=== PATIENT | female | born 1990 | race American Indian/Alaskan Native ===

== ENCOUNTER 2018-07-20 14:57 | Emergency (ER) | payer SELFPAY ==
[2018-07-20 17:29] LABS: Basophils % (Auto) 0.6 % (0.0-1.8); Eosinophils # (Auto) 0.1 K/mm3 (0.0-0.4); Eosinophils % (Auto) 1.9 % (0.0-4.3); Hematocrit 37.1 % (30.3-42.9); Hemoglobin 11.9 gm/dl (10.1-14.3); Lymphocytes # (Auto) 1.2 K/mm3 (1.2-5.4); Mean Corpuscular HGB Conc 32 % (30-34); Mean Corpuscular Hemoglobin 29 pg (28-32); Mean Corpuscular Volume 89 fl (79-97); Monocytes # (Auto) 0.5 K/mm3 (0.0-0.8); Monocytes % (Auto) 6.6 % (0.0-7.3); Platelet Count 386 K/mm3 (140-440); Red Blood Count 4.17 M/mm3 (3.65-5.03); Red Cell Distribution Width 15.5 % (13.2-15.2)
[2018-07-20 17:40] LABS: Alanine Aminotransferase 17 units/L (7-56); BUN/Creatinine Ratio 8; Blood Urea Nitrogen 5 mg/dL (7-17); Calcium 8.9 mg/dL (8.4-10.2); Hemolysis Index 7
[2018-07-20] MEDS ORDERED: DELTASONE PO ONE (17:43)
--- NOTE | 2018-07-20 17:47 | Emergency Department Report ---
HPI - General Chief Complaint: Skin Rash Time Seen by Provider: 07/20/18 16:55 - HPI HPI: 27-year-old -[place] female presents to the emergency department with a complaint of itching "all over." This started yesterday afternoon or evening and has been going on since. It does not involve the face or the legs. She denies noticing any rash, hives or inflammation. She denies any other symptoms that could be related to an allergic reaction. She has not taken anything for her symptoms prior to presentation. She says that she woke up this morning and had one episode of vomiting. She no longer has any nausea or vomiting. She does not have any past medical history other than sleep apnea. She denies any food, but distal or environmental allergies. No primary care physician. No recent travel. ED Past Medical Hx - Past Medical History Additional medical history: CARMEN - Surgical History Additional Surgical History: C/S - Social History Smoking Status: Never Smoker Substance Use Type: None - Medications Home Medications: Home Medications Medication Instructions Recorded Confirmed Last Taken Type predniSONE [Deltasone] 20 mg PO QDAY #4 tablet 07/20/18 Unknown Rx ED Review of Systems ROS: Stated complaint: RASH ALLOVER/VOMITING Other details as noted in HPI Comment: All other systems reviewed and negative Constitutional: denies: chills, fever Eyes: denies: eye pain, eye discharge, vision change ENT: denies: ear pain, throat pain Respiratory: denies: cough, shortness of breath, wheezing Cardiovascular: denies: chest pain, palpitations Gastrointestinal: vomiting. denies: abdominal pain Genitourinary: denies: urgency, dysuria, discharge Musculoskeletal: denies: back pain, joint swelling, arthralgia Skin: pruritus. denies: rash Neurological: denies: headache, weakness, paresthesias Physical Exam - Physical Exam Vital Signs: Vital Signs 07/20/18 15:07 Temperature 98.4 F Pulse Rate 91 H Respiratory 20 Rate Blood Pressure 127/76 O2 Sat by Pulse 100 Oximetry Physical Exam: GENERAL: The patient is well-developed well-nourished. HENT: Normocephalic. Atraumatic. Patient has moist mucous membranes. EYES: Extraocular motions are intact. Pupils equal reactive to light bilaterally. NECK: Supple. Trachea is midline CHEST/LUNGS: Clear to auscultation. There is no respiratory distress noted. HEART/CARDIOVASCULAR: Regular. There is no tachycardia. There is no murmur. ABDOMEN: Abdomen is soft, nontender. Patient has normal bowel sounds. Morbidly obese habitus. SKIN: Skin is warm and dry. There are no obvious urticaria, rash or lesions seen.. NEURO: The patient is awake, alert, and oriented. The patient is cooperative. The patient has no focal neurologic deficits. The patient has normal speech and gait. MUSCULOSKELETAL: There is no tenderness or deformity. There is no limitation range of motion. There is no evidence of acute injury. ED Course Vital Signs 07/20/18 15:07 Temperature 98.4 F Pulse Rate 91 H Respiratory 20 Rate Blood Pressure 127/76 O2 Sat by Pulse 100 Oximetry ED Medical Decision Making - Lab Data Result diagrams: 07/20/18 17:07 07/20/18 17:07 - Medical Decision Making The patient's main complaint is about 24 hours of severe itching. I do not see any urticaria, rash or lesions. I did some blood work just to make sure that there was no issues with her liver causing the pruritus. There is no signs of diabetes or hyperglycemia so the patient was given a dose of prednisone and will go home with a few dose of prednisone. She will also use Benadryl as necessary for the itching. She will follow up with a primary care physician and may need an pattern attendant if this continues. She will return to the ER with any worsening of her symptoms or any acute distress. Critical Care Time: No Critical care attestation.: If time is entered above; I have spent that time in minutes in the direct care of this critically ill patient, excluding procedure time. ED Disposition Clinical Impression: Itching Disposition: DC-01 TO HOME OR SELFCARE Is pt being admited?: No Condition: Stable Instructions: Itchy Skin (ED) Additional Instructions: Please follow up with a primary care physician in the next few days. Return to the emergency Department with any worsening of your symptoms or any acute distress. Prescriptions: predniSONE [Deltasone] 20 mg PO QDAY #4 tablet Referrals: CHIN FERREIRA MD [Staff Physician] - 3-5 Days CAMMIE VALADEZ MD [Staff Physician] - 3-5 Days [facility] [Outside] - 3-5 Days Forms: Work/School Release Form(ED) Time of Disposition: 17:47
[2018-07-20 18:04] VITALS: BP 118/74
== END 2018-07-20 18:03 | disposition home or self-care (01) ==
LOC: ED 14:57
DX: L29.9 Pruritus, unspecified (principal); R11.11 Vomiting without nausea
CPT/HCPCS: 36415; 80053; 85025; 99283; J7512

== ENCOUNTER 2020-06-10 16:17 | Outpatient (CLI) | payer MEDICAID ==
[2020-06-10 16:47] VITALS: BP 122/66
[2020-06-10] MEDS ORDERED: LACTATED RINGERS 500 ML IV ONE (17:15)
--- NOTE | 2020-06-10 17:28 | Event Note ---
Date: 06/10/20 (Pt came d/t abdominal pain and chest pain. ) Pt is a walk in patient who presented to triage via ambulance @ 25.1 wks via EDC of 09/22/2020. She c/o abdominal pain after falling on her abdomen and also states that she had some chest pain. As of this visit, the chest pain has resolved. Also of note the patient's heart rate is noted to be 125 and the heart rate is also noted to be 125. An EKG was ordered d/t chest pain and BPP to r/o abruption and for well being d/t unable to distinguish between and maternal heart rate. After leaving the room the nurse came to get me the provider to let me know that the patient had spoken with her cousin and she was coming to pick her up to take her to a different hospital. Spoke with patient and explained that d/t not being able to determine between maternal and heart rate, chest pain, and the need to r/o abruption d/t a fall on her abdomen, it was strongly advised that she stay to finish her evaluation. Pt has decided that she would leave so that her cousin can take her to another hospital. Pt aware that she would have to leave against medical advice (AMA), and she verbalized understanding of this but still has decided that she would leave and did not want further evaluation.
[2020-06-10 18:59] LABS: Bacteria,Urine 4+ /HPF (Negative); Bilirubin,Urine NEG (Negative); Blood,Urine SM (Negative); Calcium Oxalate Crystals,Urine 3+; Color,Urine Amber (Yellow); Mucus,Urine 3+ /HPF
== END 2020-06-10 17:30 | disposition left against medical advice (07) ==
LOC: TRG 16:17 → APU 16:18 → TRG 17:30
PROVIDERS: ATTEND Obstetrics & Gynecology
DX: O47.02 False labor before 37 completed weeks of gestation, second trimester (principal); Z3A.25 25 weeks gestation of pregnancy
CPT/HCPCS: 81001; 87086

== ENCOUNTER 2020-07-11 13:43 | Emergency (ER) | payer MEDICAID ==
[2020-07-11 14:19] VITALS: BP 142/80
--- NOTE | 2020-07-11 16:27 | Emergency Department Report ---
ED ENT HPI - General Chief complaint: Sore Throat Stated complaint: CONGESTION/STUFFY NOSE Time Seen by Provider: 07/11/20 15:58 Source: patient Mode of arrival: Ambulatory Limitations: No Limitations - History of Present Illness Initial comments: Is a pleasant 29-year-old female presents emergency department with a chief complaint of nasal congestion, sore throat over the past 3 days. She reports history of current when she is 7 months . She denies any abdominal pain, vaginal bleeding, loss of fluid and reports good movement. She has a past medical history of tachycardia and obstructive sleep apnea. Previous surgeries include . She denies any known past medical history otherwise, current medication use or known allergies to medications. She is unsure of any sick contacts. She denies any associated fever, chills, night sweats, headache, dizziness, blurry vision, nausea, vomiting, diarrhea, chest pain, shortness of breath. - Related Data Previous Rx's Medication Instructions Recorded Last Taken Type predniSONE [Deltasone] 20 mg PO QDAY #4 tablet 07/20/18 Unknown Rx Acetaminophen 325 mg PO Q6HR #30 capsule 07/11/20 Unknown Rx Fluticasone [Flonase] 1 spray NS QDAY #1 bottle 07/11/20 Unknown Rx Loratadine [Claritin] 10 mg PO DAILY #10 tablet 07/11/20 Unknown Rx Allergies Allergy/AdvReac Type Severity Reaction Status Date / Time No Known Allergies Allergy Verified 06/10/20 17:12 ED Dental HPI - General Chief complaint: Sore Throat Stated complaint: CONGESTION/STUFFY NOSE Time Seen by Provider: 07/11/20 15:58 Source: patient Mode of arrival: Ambulatory Limitations: No Limitations - Related Data Previous Rx's Medication Instructions Recorded Last Taken Type predniSONE [Deltasone] 20 mg PO QDAY #4 tablet 07/20/18 Unknown Rx Acetaminophen 325 mg PO Q6HR #30 capsule 07/11/20 Unknown Rx Fluticasone [Flonase] 1 spray NS QDAY #1 bottle 07/11/20 Unknown Rx Loratadine [Claritin] 10 mg PO DAILY #10 tablet 07/11/20 Unknown Rx Allergies Allergy/AdvReac Type Severity Reaction Status Date / Time No Known Allergies Allergy Verified 06/10/20 17:12 ED Review of Systems ROS: Stated complaint: CONGESTION/STUFFY NOSE Other details as noted in HPI Comment: All other systems reviewed and negative Constitutional: denies: chills, fever Eyes: denies: eye pain, eye discharge, vision change ENT: as per HPI, throat pain, congestion. denies: ear pain Respiratory: denies: cough, shortness of breath, wheezing Cardiovascular: denies: chest pain, palpitations Endocrine: no symptoms reported Gastrointestinal: denies: abdominal pain, nausea, diarrhea Genitourinary: denies: urgency, dysuria, discharge Musculoskeletal: denies: back pain, joint swelling, arthralgia Skin: denies: rash, lesions Neurological: denies: headache, weakness, paresthesias Psychiatric: denies: anxiety, depression Hematological/Lymphatic: denies: easy bleeding, easy bruising ED Past Medical Hx - Past Medical History Previous Medical History?: Yes Additional medical history: CARMEN - Surgical History Past Surgical History?: Yes Additional Surgical History: C/S - Social History Smoking Status: Never Smoker Substance Use Type: None - Medications Home Medications: Home Medications Medication Instructions Recorded Confirmed Last Taken Type predniSONE [Deltasone] 20 mg PO QDAY #4 tablet 07/20/18 Unknown Rx Acetaminophen 325 mg PO Q6HR #30 capsule 07/11/20 Unknown Rx Fluticasone [Flonase] 1 spray NS QDAY #1 bottle 07/11/20 Unknown Rx Loratadine [Claritin] 10 mg PO DAILY #10 tablet 07/11/20 Unknown Rx ED Physical Exam - General Limitations: No Limitations, Physical Limitation (Body habitus) General appearance: alert, in no apparent distress - Head Head exam: Present: atraumatic, normocephalic - Eye Eye exam: Present: normal appearance, PERRL, EOMI Pupils: Present: normal accommodation - ENT ENT exam: Present: normal exam, mucous membranes moist, TM's normal bilaterally (No effusion, no mastoid tenderness). Absent: normal orophraynx (Mild erythema of the posterior pharynx with postnasal drip) - Neck Neck exam: Present: normal inspection, full ROM. Absent: tenderness, meningismus (Negative Kernig emergency sign, full active range of motion without pain), lymphadenopathy - Respiratory Respiratory exam: Present: normal lung sounds bilaterally. Absent: respiratory distress, wheezes, rales, rhonchi, stridor - Cardiovascular Cardiovascular Exam: Present: regular rate, normal rhythm, normal heart sounds. Absent: systolic murmur, diastolic murmur, rubs, gallop - GI/Abdominal GI/Abdominal exam: Present: soft, normal bowel sounds. Absent: distended, tenderness, guarding, rebound, rigid - Extremities Exam Extremities exam: Present: normal inspection, full ROM. Absent: tenderness, pedal edema, calf tenderness (Negative Homans sign bilaterally, no posterior calf tenderness, no lower extremity edema, normal DP and PT pulses bilaterally.) - Back Exam Back exam: Present: normal inspection, full ROM. Absent: tenderness, CVA tenderness (R), CVA tenderness (L), muscle spasm - Neurological Exam Neurological exam: Present: alert, oriented X3, CN II-XII intact, normal gait. Absent: motor sensory deficit - Psychiatric Psychiatric exam: Present: normal affect, normal mood - Skin Skin exam: Present: warm, dry, intact, normal color. Absent: rash ED Course Vital Signs 07/11/20 14:18 Temperature 99.3 F Pulse Rate 127 H Respiratory 22 Rate Blood Pressure 142/80 O2 Sat by Pulse 99 Oximetry ED Medical Decision Making - Medical Decision Making Patient is nontoxic and well-appearing with her 3 children at bedside. Her lung sounds are clear and oxygen saturation is 99% on room air making my suspicion for pneumonia less likely. She has no fever. The patient had some nasal congestion and bilateral nasal turbinate paleness as well as symptoms of sore throat and postnasal drip. I suspect this is likely due to the allergic rhinitis. She was tachycardic when she got here 127 which she states is very chronic for her and since she has been her heart rate is been elevated at this point. She denies any chest pain and there is no signs of hypoxia or DVT on exam and her Wells risk is low with her only risk factor at this time being and her tachycardia making my suspicion for PE low. 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 She was instructed to return the emerge department any change or worsening symptoms. She verbalized understanding the diagnosis, treatment plan and follow-up instructions and all of her questions were answered. - Differential Diagnosis acute sinusitis, acute rhinitis, covid-19, PE Critical care attestation.: If time is entered above; I have spent that time in minutes in the direct care of this critically ill patient, excluding procedure time. ED Disposition Clinical Impression: Allergic rhinitis Qualifiers: Allergic rhinitis trigger: unspecified Allergic rhinitis seasonality: non- seasonal Qualified Code(s): J30.89 - Other allergic rhinitis Disposition: TO HOME OR SELFCARE Is pt being admited?: No Condition: Stable Instructions: Allergic Rhinitis (ED) Prescriptions: Acetaminophen 325 mg PO Q6HR #30 capsule Loratadine [Claritin] 10 mg PO DAILY #10 tablet Fluticasone [Flonase] 1 spray NS QDAY #1 bottle Referrals: [facility] [Provider Group] - 3-5 Days Time of Disposition: 16:29
== END 2020-07-11 16:27 | disposition home or self-care (01) ==
LOC: ED 13:43
DX: O26.891 Other specified pregnancy related conditions, first trimester (principal); J30.9 Allergic rhinitis, unspecified; Z3A.01 Less than 8 weeks gestation of pregnancy; Z98.890 Other specified postprocedural states; Z79.899 Other long term (current) drug therapy
CPT/HCPCS: 99282

== ENCOUNTER 2020-07-17 11:52 | Outpatient (CLI) | payer MEDICAID ==
[2020-07-17] MEDS ORDERED: LACTATED RINGERS 1,000 ML IV SCH (13:00)
--- NOTE | 2020-07-17 14:26 | Event Note ---
Date: 07/17/20 (c/o chest pain) Pt is 29 y.o. @ 30.3 weeks by u/s completed at [facility]. States that she presented to triage because she has chest pain that she believes is because she has a cold. Last triage visit, pt had chest pain and signed out AMA. Difficulty with monitoring heart rate d/t body habitus. Pt appears to be short of breath, although she her O2 saturation is currently 95-96 %. EKG and labs ordered. Will also order u/s for well being d/t unable to trace heart rate.
[2020-07-17 14:30] VITALS: BP 133/86
[2020-07-17 14:56] LABS: Bacteria,Urine 4+ /HPF (Negative); Bilirubin,Urine NEG (Negative); Blood,Urine NEG (Negative); Color,Urine Amber (Yellow); Mucus,Urine 2+ /HPF
[2020-07-17] MEDS ORDERED: ACETAMINOPHEN 500 MG TAB PO ONE (16:36)
--- NOTE | 2020-07-17 17:07 | Event Note ---
Date: 07/17/20 (Pt with continued chest pain) Pt with continued chest pain. U/s showed pt with EDC of 09/22/2020 which is consistent with pt stated EDC. Obtained actual weight: 376 lbs. Will send pt to ER for further evaluation. Labs WNL and EKG showed tachycardia. Discussed with pt that we will need to send her to the ER for further evaluation and pt agreed to this plan. Dr. Chirinos updated on pt status and plan to send her to ER for further evaluation.
--- NOTE | 2020-07-17 17:37 | Ultrasound Report ---
US OB follow up INDICATION / CLINICAL INFORMATION: growth and well-being. COMPARISON: None available. FINDINGS: Single, viable intrauterine in cephalic presentation. heart rate 153. Placenta is posterior and fundal, free of the cervical os. Amniotic fluid volume is normal, with a fl uid index of 20 cm. Biparietal diameter 7.0 cm, 28 weeks 1 day. Head circumference 26.7 cm, 29 weeks 0 days. Head circumference 30.1 cm, 34 weeks 1 day. Femur length 5.7 cm, 30 weeks 0 days. Estimated body weight 1843 g. IMPRESSION: 1. Single, viable 30 week 2 day intrauterine . Signer Name: Nicholas Suh MD Signed: 07/17/2020 5:32 PM Workstation Name: [id number]
== END 2020-07-17 17:23 | disposition home or self-care (01) ==
LOC: TRG 11:52 → APU 11:52 → TRG 17:23
PROVIDERS: ATTEND Obstetrics & Gynecology
DX: O26.893 Other specified pregnancy related conditions, third trimester (principal); R07.9 Chest pain, unspecified; Z3A.30 30 weeks gestation of pregnancy
CPT/HCPCS: 36415; 59025; 76816; 81001; 84484; 93005

== ENCOUNTER 2020-07-17 17:41 | Inpatient (IN) | payer MEDICAID ==
[2020-07-17] MEDS ORDERED: SODIUM CHLORIDE 0.9% 500 ML 500 ML IV ONE (17:55)
[2020-07-17 18:50] LABS: Basophils % (Auto) 0.3 % (0.0-1.8); Eosinophils % (Auto) 0.1 % (0.0-4.3); Hematocrit 34.5 % (30.3-42.9); Hemoglobin 11.4 gm/dl (10.1-14.3); Lymphocytes # (Auto) 0.9 K/mm3 (1.2-5.4); Lymphocytes % (Auto) 14.4 % (13.4-35.0); Mean Corpuscular HGB Conc 33 % (30-34); Mean Corpuscular Volume 94 fl (79-97); Monocytes # (Auto) 0.3 K/mm3 (0.0-0.8); Monocytes % (Auto) 4.9 % (0.0-7.3); Platelet Count 250 K/mm3 (140-440); Red Blood Count 3.67 M/mm3 (3.65-5.03); Red Cell Distribution Width 14.5 % (13.2-15.2)
[2020-07-17 18:57] LABS: Alanine Aminotransferase 19 units/L (7-56); Albumin 3.2 g/dL (3.9-5); Blood Urea Nitrogen 3 mg/dL (7-17); Calcium 8.7 mg/dL (8.4-10.2); Hemolysis Index 2
[2020-07-17 18:58] LABS: BUN/Creatinine Ratio 8
[2020-07-17 19:00] LABS: INR 0.98 (0.87-1.13)
[2020-07-17] MEDS ORDERED: CEFEPIME/NS 2 GM/100 ML 2 GM/100 ML BAG IV ONE (19:49)
--- NOTE | 2020-07-17 19:51 | XRay Report ---
CHEST 1 VIEW INDICATION: possible Sepsis COMPARISON: None FINDINGS: Support devices: None Heart: Normal Lungs/Pleura: Patchy bilateral parenchymal disease is suggestive of atypical pneumonia, possibly hannah l, such as Covid 19. IMPRESSION: 1. Patchy bilateral lung disease, possibly viral pneumonia. Signer Name: Nicholas Suh MD Signed: 07/17/2020 7:47 PM Workstation Name: [id number]
[2020-07-17 21:05] LABS: Bacteria,Urine 4+ /HPF (Negative); Bilirubin,Urine NEG (Negative); Blood,Urine NEG (Negative); Color,Urine Amber (Yellow); Mucus,Urine FEW /HPF
--- NOTE | 2020-07-17 21:05 | Emergency Department Report ---
ED General Adult HPI - General Chief complaint: Chest Pain Stated complaint: ABD DISCOMFORT Time Seen by Provider: 07/17/20 19:38 Source: patient Mode of arrival: Ambulatory Limitations: No Limitations - History of Present Illness Initial comments: Patient presents to the emergency department with a chief complaint of shortness of breath and chest pain that started yesterday. Patient states she is 8 months and was seen in labor and delivery before her arrival to the ED. Patient describes the chest pain is sharp in nature and denies any radiation. Patient also complains of shortness of breath that is been present actually for a week and she was seen for the shortness of breath in the emergency department a week ago. The patient is G6, P4 -: Gradual Location: chest Radiation: non-radiation Severity scale (0 -10): 5 Quality: sharp Consistency: constant Improves with: none Worsens with: none Associated Symptoms: denies other symptoms Treatments Prior to Arrival: none - Related Data Previous Rx's Medication Instructions Recorded Last Taken Type predniSONE [Deltasone] 20 mg PO QDAY #4 tablet 07/20/18 Unknown Rx Acetaminophen 325 mg PO Q6HR #30 capsule 07/11/20 Unknown Rx Fluticasone [Flonase] 1 spray NS QDAY #1 bottle 07/11/20 Unknown Rx Loratadine [Claritin] 10 mg PO DAILY #10 tablet 07/11/20 Unknown Rx Allergies Allergy/AdvReac Type Severity Reaction Status Date / Time No Known Allergies Allergy Verified 06/10/20 17:12 ED Review of Systems ROS: Stated complaint: ABD DISCOMFORT Other details as noted in HPI Comment: All other systems reviewed and negative Constitutional: denies: chills, fever Eyes: denies: eye pain, eye discharge, vision change ENT: denies: ear pain, throat pain Respiratory: shortness of breath. denies: cough, wheezing Cardiovascular: chest pain. denies: palpitations Endocrine: no symptoms reported Gastrointestinal: denies: abdominal pain, nausea, diarrhea Genitourinary: denies: urgency, dysuria, discharge Musculoskeletal: denies: back pain, joint swelling, arthralgia Skin: denies: rash, lesions Neurological: denies: headache, weakness, paresthesias Psychiatric: denies: anxiety, depression Hematological/Lymphatic: denies: easy bleeding, easy bruising ED Past Medical Hx - Past Medical History Previous Medical History?: Yes Hx Hypertension: No Hx Diabetes: No Hx Deep Vein Thrombosis: No Hx Renal Disease: No Hx Sickle Cell Disease: No Hx Seizures: No Hx Asthma: No Additional medical history: CARMEN - Surgical History Past Surgical History?: Yes Additional Surgical History: c section - Social History Smoking Status: Never Smoker Substance Use Type: None - Medications Home Medications: Home Medications Medication Instructions Recorded Confirmed Last Taken Type predniSONE [Deltasone] 20 mg PO QDAY #4 tablet 07/20/18 Unknown Rx Acetaminophen 325 mg PO Q6HR #30 capsule 07/11/20 Unknown Rx Fluticasone [Flonase] 1 spray NS QDAY #1 bottle 07/11/20 Unknown Rx Loratadine [Claritin] 10 mg PO DAILY #10 tablet 07/11/20 Unknown Rx ED Physical Exam - General Limitations: No Limitations General appearance: alert, in no apparent distress - Head Head exam: Present: atraumatic, normocephalic - Eye Eye exam: Present: normal appearance - ENT ENT exam: Present: mucous membranes moist - Neck Neck exam: Present: normal inspection - Respiratory Respiratory exam: Present: rales. Absent: respiratory distress - Cardiovascular Cardiovascular Exam: Present: normal rhythm, tachycardia. Absent: systolic murmur, diastolic murmur, rubs, gallop - GI/Abdominal GI/Abdominal exam: Present: soft, normal bowel sounds, other (Gravid uterus). Absent: distended, tenderness - Extremities Exam Extremities exam: Present: normal inspection - Back Exam Back exam: Present: normal inspection - Neurological Exam Neurological exam: Present: alert, oriented X3, CN II-XII intact. Absent: motor sensory deficit - Psychiatric Psychiatric exam: Present: normal affect, normal mood - Skin Skin exam: Present: warm, dry, intact, normal color. Absent: rash ED Course Vital Signs 07/17/20 07/17/20 07/17/20 17:56 21:38 21:40 Temperature 100.3 F H 99.0 F Pulse Rate 133 H 124 H 124 H Respiratory 20 13 13 Rate Blood Pressure 97/54 Blood Pressure 149/74 97/54 [Right] O2 Sat by Pulse 97 96 Oximetry 07/17/20 22:15 Temperature Pulse Rate 125 H Respiratory 31 H Rate Blood Pressure 101/38 Blood Pressure [Right] O2 Sat by Pulse 96 Oximetry ED Medical Decision Making - Lab Data Result diagrams: 07/17/20 18:04 07/17/20 23:39 Lab Results 07/17/20 07/17/20 07/17/20 Range/Units 18:04 18:04 18:04 WBC 5.9 (4.5-11.0) K/mm3 RBC 3.67 (3.65-5.03) M/mm3 Hgb 11.4 (10.1-14.3) gm/dl Hct 34.5 (30.3-42.9) % MCV 94 (79-97) fl MCH 31 (28-32) pg MCHC 33 (30-34) % RDW 14.5 (13.2-15.2) % Plt Count 250 (140-440) K/mm3 Lymph % (Auto) 14.4 (13.4-35.0) % Cherry % (Auto) 4.9 (0.0-7.3) % Eos % (Auto) 0.1 (0.0-4.3) % Baso % (Auto) 0.3 (0.0-1.8) % Lymph # (Auto) 0.9 L (1.2-5.4) K/mm3 Cherry # (Auto) 0.3 (0.0-0.8) K/mm3 Eos # (Auto) 0.0 (0.0-0.4) K/mm3 Baso # (Auto) 0.0 (0.0-0.1) K/mm3 Seg Neutrophils % 80.3 H (40.0-70.0) % Seg Neutrophils # 4.8 (1.8-7.7) K/mm3 PT (12.2-14.9) Sec. INR (0.87-1.13) VBG pH (7.320-7.420) Sodium 136 L (137-145) mmol/L Potassium 3.7 (3.6-5.0) mmol/L Chloride 100.0 (98-107) mmol/L Carbon Dioxide 24 (22-30) mmol/L Anion Gap 16 mmol/L BUN 3 L (7-17) mg/dL Creatinine 0.4 L (0.6-1.2) mg/dL Estimated GFR > 60 ml/min BUN/Creatinine Ratio 8 % Glucose 121 H (65-100) mg/dL Lactic Acid 2.10 H* (0.7-2.0) mmol/L Calcium 8.7 (8.4-10.2) mg/dL Total Bilirubin 0.40 (0.1-1.2) mg/dL AST 29 (5-40) units/L ALT 19 (7-56) units/L Alkaline Phosphatase 94 (35-129) units/L Total Protein 5.8 L (6.3-8.2) g/dL Albumin 3.2 L (3.9-5) g/dL Albumin/Globulin Ratio 1.2 % Urine Color (Yellow) Urine Turbidity (Clear) Urine pH (5.0-7.0) Ur Specific [place] (1.003-1.030) Urine Protein (Negative) mg/dL Urine Glucose (UA) (Negative) mg/dL Urine Ketones (Negative) mg/dL Urine Blood (Negative) Urine Nitrite (Negative) Urine Bilirubin (Negative) Urine Urobilinogen (<2.0) mg/dL Ur Leukocyte Esterase (Negative) Urine WBC (Auto) (0.0-6.0) /HPF Urine RBC (Auto) (0.0-6.0) /HPF U Epithel Cells (Auto) (0-13.0) /HPF Urine Bacteria (Auto) (Negative) /HPF Urine Mucus /HPF 07/17/20 07/17/20 07/17/20 Range/Units 18:04 18:04 20:31 WBC (4.5-11.0) K/mm3 RBC (3.65-5.03) M/mm3 Hgb (10.1-14.3) gm/dl Hct (30.3-42.9) % MCV (79-97) fl MCH (28-32) pg MCHC (30-34) % RDW (13.2-15.2) % Plt Count (140-440) K/mm3 Lymph % (Auto) (13.4-35.0) % Cherry % (Auto) (0.0-7.3) % Eos % (Auto) (0.0-4.3) % Baso % (Auto) (0.0-1.8) % Lymph # (Auto) (1.2-5.4) K/mm3 Cherry # (Auto) (0.0-0.8) K/mm3 Eos # (Auto) (0.0-0.4) K/mm3 Baso # (Auto) (0.0-0.1) K/mm3 Seg Neutrophils % (40.0-70.0) % Seg Neutrophils # (1.8-7.7) K/mm3 PT 13.1 (12.2-14.9) Sec. INR 0.98 (0.87-1.13) VBG pH 7.371 (7.320-7.420) Sodium (137-145) mmol/L Potassium (3.6-5.0) mmol/L Chloride (98-107) mmol/L Carbon Dioxide (22-30) mmol/L Anion Gap mmol/L BUN (7-17) mg/dL Creatinine (0.6-1.2) mg/dL Estimated GFR ml/min BUN/Creatinine Ratio % Glucose (65-100) mg/dL Lactic Acid 1.50 (0.7-2.0) mmol/L Calcium (8.4-10.2) mg/dL Total Bilirubin (0.1-1.2) mg/dL AST (5-40) units/L ALT (7-56) units/L Alkaline Phosphatase (35-129) units/L Total Protein (6.3-8.2) g/dL Albumin (3.9-5) g/dL Albumin/Globulin Ratio % Urine Color (Yellow) Urine Turbidity (Clear) Urine pH (5.0-7.0) Ur Specific [place] (1.003-1.030) Urine Protein (Negative) mg/dL Urine Glucose (UA) (Negative) mg/dL Urine Ketones (Negative) mg/dL Urine Blood (Negative) Urine Nitrite (Negative) Urine Bilirubin (Negative) Urine Urobilinogen (<2.0) mg/dL Ur Leukocyte Esterase (Negative) Urine WBC (Auto) (0.0-6.0) /HPF Urine RBC (Auto) (0.0-6.0) /HPF U Epithel Cells (Auto) (0-13.0) /HPF Urine Bacteria (Auto) (Negative) /HPF Urine Mucus /HPF 07/17/ Range/Units Unknown WBC (4.5-11.0) K/mm3 RBC (3.65-5.03) M/mm3 Hgb (10.1-14.3) gm/dl Hct (30.3-42.9) % MCV (79-97) fl MCH (28-32) pg MCHC (30-34) % RDW (13.2-15.2) % Plt Count (140-440) K/mm3 Lymph % (Auto) (13.4-35.0) % Cherry % (Auto) (0.0-7.3) % Eos % (Auto) (0.0-4.3) % Baso % (Auto) (0.0-1.8) % Lymph # (Auto) (1.2-5.4) K/mm3 Cherry # (Auto) (0.0-0.8) K/mm3 Eos # (Auto) (0.0-0.4) K/mm3 Baso # (Auto) (0.0-0.1) K/mm3 Seg Neutrophils % (40.0-70.0) % Seg Neutrophils # (1.8-7.7) K/mm3 PT (12.2-14.9) Sec. INR (0.87-1.13) VBG pH (7.320-7.420) Sodium (137-145) mmol/L Potassium (3.6-5.0) mmol/L Chloride (98-107) mmol/L Carbon Dioxide (22-30) mmol/L Anion Gap mmol/L BUN (7-17) mg/dL Creatinine (0.6-1.2) mg/dL Estimated GFR ml/min BUN/Creatinine Ratio % Glucose (65-100) mg/dL Lactic Acid (0.7-2.0) mmol/L Calcium (8.4-10.2) mg/dL Total Bilirubin (0.1-1.2) mg/dL AST (5-40) units/L ALT (7-56) units/L Alkaline Phosphatase (35-129) units/L Total Protein (6.3-8.2) g/dL Albumin (3.9-5) g/dL Albumin/Globulin Ratio % Urine Color Maria G (Yellow) Urine Turbidity Slightly-cloudy (Clear) Urine pH 6.0 (5.0-7.0) Ur Specific [place] 1.018 (1.003-1.030) Urine Protein 30 mg/dl (Negative) mg/dL Urine Glucose (UA) Neg (Negative) mg/dL Urine Ketones 20 (Negative) mg/dL Urine Blood Neg (Negative) Urine Nitrite Neg (Negative) Urine Bilirubin Neg (Negative) Urine Urobilinogen 4.0 (<2.0) mg/dL Ur Leukocyte Esterase Neg (Negative) Urine WBC (Auto) 6.0 (0.0-6.0) /HPF Urine RBC (Auto) 4.0 (0.0-6.0) /HPF U Epithel Cells (Auto) 17.0 H (0-13.0) /HPF Urine Bacteria (Auto) 4+ (Negative) /HPF Urine Mucus Few /HPF - EKG Data -: EKG Interpreted by Me EKG shows normal: sinus rhythm Rate: tachycardia - Radiology Data Radiology results: report reviewed - Medical Decision Making Discussed plan of care with patient Patient given IV antibiotics and IV fluids Patient was initially screened in labor and delivery Patient presented to ED for Eval of sob with cp Discussed patient with IM and asked for OB admit Spoke with Dr. Chirinos who has for patient be admitted to internal medicine and for them to be on consult. Critical care time in (mins) excluding proc time.: 35 Critical care attestation.: If time is entered above; I have spent that time in minutes in the direct care of this critically ill patient, excluding procedure time. ED Disposition Clinical Impression: Bilateral pneumonia Disposition: [id number] OP ADMIT IP TO THIS HOSP Is pt being admited?: Yes Does the pt Need Aspirin: No Condition: Fair Instructions: Bacterial Pneumonia (ED) Referrals: PRIMARY CARE, [Primary Care Provider] - 3-5 Days
--- NOTE | 2020-07-17 22:16 | Cat Scan Report ---
CTA CHEST WITH CONTRAST INDICATION / CLINICAL INFORMATION: sob/chest pain. TECHNIQUE: Axial CT images were obtained through the chest after injection of 100 cc Omnipaque 350 IV contrast. 3 plane MIP and/or 3D reconstructions were produced. All CT scans at this location are performed usin g CT dose reduction for ALARA by means of automated exposure control. COMPARISON: Radiograph from the same date. FINDINGS: PULMONARY ARTERIES: No large central filling defect is identified. Evaluation of distal branches is l imited secondary to respiratory motion and patient body habitus. THORACIC AORTA: No significant abnormality. HEART: No significant abnormality. CORONARY ARTERIES: No significant calcification. MEDIASTINUM / LEONARD: No significant abnormality. PLEURA: No pleural effusion. No pneumothorax. LUNGS: There is diffuse patchy airspace disease, more confluent within the periphery of the upper lob es. ADDITIONAL FINDINGS: None. UPPER ABDOMEN: No acute findings. SKELETAL STRUCTURES: No significant osseous abnormality. IMPRESSION: 1. No CT evidence for pulmonary embolism given slight limitations. 2. Diffuse patchy airspace disease throughout the lungs, more confluent within the periphery of the u pper lobes. Multifocal pneumonia is favored. An atypical viral infection such as Covid cannot be excl uded. Signer Name: Fredi Kramer MD Signed: 07/17/2020 10:12 PM Workstation Name: [id number]
[2020-07-17] MEDS ORDERED: AZITHROMYCIN 500 MG in SODIUM CHLORIDE 0.9% 250ML 250 ML IV ONE (22:59)
[2020-07-17] MEDS ORDERED: SODIUM CHLORIDE 0.9% 1000 ML 1,000 ML IV ONE (23:32)
[2020-07-18 00:38] LABS: C-Reactive Protein 7.1 mg/dL (0.00-1.30)
[2020-07-18] MEDS ORDERED: cefTRIAXone/NS 1 GM/50 ML 1 GM/50 ML BAG IV ONE (01:36)
--- NOTE | 2020-07-18 02:47 | History and Physical Report ---
<CHARLEEN AYERS - Last Filed: 07/18/20 03:39> History of Present Illness Date of examination: 07/18/20 (Pt with chest pain and bilateral pneumonia) Date of admission: 07/18/2020 Chief complaint: I've been having chest pain for the past few days. History of present illness: Pt is a 29 y.o. @ 30.4 wks based off early u/s at outside hospital, EDC of 09/22/2020. Presented to labor and delivery triage d/t chest pain. She has had no care, because "no doctor will take me because of my weight." She has a history of X 2 X3, sleep apenia, and obesity. 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 Denies use of drugs, alcohol. She had one child pass away in 2018 at 1 y.o. d/t infection. 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 ) - Obstetrical History Expected Date of Delivery: 09/22/20 Actual Gestation: 30 Week(s) 4 Day(s) : 6 Para: 5 Hx # Term Pregnancies: 5 Number of Pregnancies: 0 Spontaneous Abortions: 0 Induced : 0 Number of Living Children: 4 Medications and Allergies Allergies Allergy/AdvReac Type Severity Reaction Status Date / Time No Known Allergies Allergy Verified 06/10/20 17:12 Home Medications Medication Instructions Recorded Confirmed Last Taken Type predniSONE [Deltasone] 20 mg PO QDAY #4 tablet 07/20/18 07/18/20 Unknown Rx Loratadine [Claritin] 10 mg PO DAILY #10 tablet 07/11/20 07/18/20 Unknown Rx Fluticasone [Flonase] 1 spray NS QDAY PRN 07/18/20 07/18/20 Unknown History Review of Systems Cardiovascular: chest pain Respiratory: shortness of breath - Vital Signs Vital signs: Vital Signs Temp Pulse Resp BP Pulse Ox 100.3 F H 133 H 20 149/74 97 07/17/20 17:56 07/17/20 17:56 07/17/20 17:56 07/17/20 17:56 07/17/20 17:56 Temp Pulse Resp BP Pulse Ox 99.0 F 132 H 25 H 144/78 96 07/17/20 21:40 07/18/20 01:45 07/18/20 01:45 07/18/20 01:45 07/18/20 01:45 Pt denies vaginal bleeding, LOF, and ctxs. There is positive movement. - Physical Exam Breasts: Positive: deferred Cardiovascular: Other (Sinus Tachycardia) Lungs: Positive: Other (Appears to be short of breath) Abdomen: Positive: normal appearance, soft Genitourinary (Female): Positive: normal external genitalia, normal perenium Vulva: both: normal Vagina: Positive: normal moisture. Negative: discharge Cervix: Negative: lesion, discharge Uterus: Positive: normal size, normal contour Adnexa: both: normal Anus/Rectum: Positive: normal perianal skin, heme negative. Negative: rectal mass, hemorrhoids Extremities: Positive: edema (Generalized +1) Deep Tendon Reflex Grade: Normal +2 - Obstetrical FHR: category 1 Uterine Contraction Monitor Mode: External Uterine Contraction Pattern: Absent Results Result Diagrams: 07/17/20 18:04 07/17/20 23:39 Abnormal lab results 07/17/20 07/17/20 07/17/20 Range/Units 18:04 18:04 18:04 Lymph # (Auto) 0.9 L (1.2-5.4) K/mm3 Seg Neutrophils % 80.3 H (40.0-70.0) % D-Dimer (0-234) ng/mlDDU Sodium 136 L (137-145) mmol/L BUN 3 L (7-17) mg/dL Creatinine 0.4 L (0.6-1.2) mg/dL Glucose 121 H (65-100) mg/dL Lactic Acid 2.10 H* (0.7-2.0) mmol/L Lactate Dehydrogenase (91-180) units/L C-Reactive Protein (0.00-1.30) mg/dL Total Protein 5.8 L (6.3-8.2) g/dL Albumin 3.2 L (3.9-5) g/dL U Epithel Cells (Auto) (0-13.0) /HPF 07/17/20 07/17/20 07/17/20 Range/Units 23:39 23:39 Unknown Lymph # (Auto) (1.2-5.4) K/mm3 Seg Neutrophils % (40.0-70.0) % D-Dimer 620.88 H (0-234) ng/mlDDU Sodium (137-145) mmol/L BUN (7-17) mg/dL Creatinine (0.6-1.2) mg/dL Glucose 168 H (65-100) mg/dL Lactic Acid (0.7-2.0) mmol/L Lactate Dehydrogenase 375 H (91-180) units/L C-Reactive Protein 7.10 H (0.00-1.30) mg/dL Total Protein (6.3-8.2) g/dL Albumin (3.9-5) g/dL U Epithel Cells (Auto) 17.0 H (0-13.0) /HPF All other labs normal. GBS UNKNOWN Assessment and Plan 29 y.o. @ 30.4 wks , no care, admitted to the medical- surgical floor d/t pneumonia. Consulted with hospitalist group for medical care and transfer to medical floor. Will monitor status through NST q shift. telephone recorder on L&D aware of need for q shift NSTs. - Patient Problems (1) Bilateral pneumonia Onset Date: ~07/17/20 Current Visit: Yes Status: Acute Qualifiers: Pneumonia type: due to unspecified organism Lung location: unspecified part of lung Qualified Code(s): J18.9 - Pneumonia, unspecified organism Plan to address problem: Consult with hospitalist. Antibiotics and medical care for pneumonia per hospitalist. (2) with 30 completed weeks gestation Onset Date: ~07/14/20 Current Visit: Yes Status: Acute Plan to address problem: Will monitor status with NST q shift. <JUDY WELLS - Last Filed: 07/18/20 08:35> History of Present Illness Date of admission: 07/18/20 02:13 History of present illness: Had discussions with both and Dr. Torres and was informed that certain [facility] policy was that all obstetrical patient over 20 weeks would be admitted by the care program resident whether or not the patient admission is for an obstetrical problem. I was assured by both doctors that the hospitalist service will be the primary canvass manager of this patient's care in light of her diagnosis of pneumonia. Will follow the patient and address any obstetrical problems detected. Patient requires primary service from the hospitalist service. Medications and Allergies Active Meds: Active Medications Acetaminophen (Tylenol) 650 mg PO Q4H PRN PRN Reason: Pain MILD(1-3)/Fever >100.5/MATA Al Hydrox/Mg Hydrox/Simethicone (Alum-Mag Hydrox-Simeth [id number]/5ml) 30 ml PO Q4H PRN PRN Reason: Indigestion Docusate Sodium (Colace) 100 mg PO BID MICHAEL Heparin Sodium (Porcine) (Heparin) 5,000 unit SUB-Q Q8HR MICHAEL Last Admin: 07/18/20 05:37 Dose: 5,000 unit Documented by: Ceftriaxone Sodium (Rocephin/Ns 2 Gm/100 Ml) 2 gm in 100 mls @ 200 mls/hr IV Q24HR@2200 MICHAEL; Protocol Azithromycin 500 mg/ Sodium (Chloride) 250 mls @ 250 mls/hr IV Q24HR@2200 MICHAEL; Protocol Sodium Chloride (Nacl 0.9% 1000 Ml) 1,000 mls @ 125 mls/hr IV DIRECT MICHAEL Last Admin: 07/18/20 04:36 Dose: 125 mls/hr Documented by: Magnesium Hydroxide (Milk Of Magnesia) 30 ml PO Q4H PRN PRN Reason: Constipation Sodium Chloride (Sodium Chloride Flush Syringe 10 Ml) 10 ml IV BID MICHAEL Sodium Chloride (Sodium Chloride Flush Syringe 10 Ml) 10 ml IV PRN PRN PRN Reason: LINE FLUSH - Vital Signs Vital signs: Vital Signs Temp Pulse Resp BP Pulse Ox 100.3 F H 133 H 20 149/74 97 07/17/20 17:56 07/17/20 17:56 07/17/20 17:56 07/17/20 17:56 07/17/20 17:56 Temp Pulse Resp BP Pulse Ox 98.8 F 110 H 18 116/70 96 07/18/20 04:14 07/18/20 04:14 07/18/20 04:14 07/18/20 03:01 07/18/20 04:14 Results Result Diagrams: 07/17/20 18:04 07/17/20 23:39 Abnormal lab results 07/17/20 07/17/20 07/17/20 Range/Units 18:04 18:04 18:04 Lymph # (Auto) 0.9 L (1.2-5.4) K/mm3 Seg Neutrophils % 80.3 H (40.0-70.0) % D-Dimer (0-234) ng/mlDDU Sodium 136 L (137-145) mmol/L BUN 3 L (7-17) mg/dL Creatinine 0.4 L (0.6-1.2) mg/dL Glucose 121 H (65-100) mg/dL Lactic Acid 2.10 H* (0.7-2.0) mmol/L Lactate Dehydrogenase (91-180) units/L C-Reactive Protein (0.00-1.30) mg/dL Total Protein 5.8 L (6.3-8.2) g/dL Albumin 3.2 L (3.9-5) g/dL U Epithel Cells (Auto) (0-13.0) /HPF 07/17/20 07/17/20 07/17/20 Range/Units 23:39 23:39 Unknown Lymph # (Auto) (1.2-5.4) K/mm3 Seg Neutrophils % (40.0-70.0) % D-Dimer 620.88 H (0-234) ng/mlDDU Sodium (137-145) mmol/L BUN (7-17) mg/dL Creatinine (0.6-1.2) mg/dL Glucose 168 H (65-100) mg/dL Lactic Acid (0.7-2.0) mmol/L Lactate Dehydrogenase 375 H (91-180) units/L C-Reactive Protein 7.10 H (0.00-1.30) mg/dL Total Protein (6.3-8.2) g/dL Albumin (3.9-5) g/dL U Epithel Cells (Auto) 17.0 H (0-13.0) /HPF All other labs normal.
--- NOTE | 2020-07-18 02:48 | Consultation ---
History of Present Illness - Reason for Consult Consult date: 07/18/20 Requesting physician: JUDY WELLS - History of Present Illness 29 year old female with history of CARMEN and 8 months presentswith shortness of breath and chest pain. Shortness of breath was said to have started about a week ago however she started having some chest discomfort within the last 24 hours. She denies any fever or chills, no nausea vomiting, no headache or dizziness. Patient denies any sick contacts and no recent travel. She denies contact with anyone with COVID-19. Work-up in the emergency room today chest x-ray shows bilateral pneumonia. CT angiogram of the chest shows:. No CT evidence for pulmonary embolism given slight limitations. Diffuse patchy airspace disease throughout the lungs, more confluent within the periphery of the upper lobes. Multifocal pneumonia is favored. An atypical viral infection such as Covid cannot be excluded. Patient was started on empiric IV antibiotics and placed on isolation precautions. Patient has been discussed with the CHEMICAL SUPERVISOR team by the ER physician. Hospitalist team will be consulting and following the patient. Past History Past Medical History: other (CARMEN) Past Surgical History: No surgical history Social history: no significant social history Family history: no significant family history Medications and Allergies Allergies Allergy/AdvReac Type Severity Reaction Status Date / Time No Known Allergies Allergy Verified 06/10/20 17:12 Home Medications Medication Instructions Recorded Confirmed Last Taken Type predniSONE [Deltasone] 20 mg PO QDAY #4 tablet 07/20/18 07/18/20 Unknown Rx Loratadine [Claritin] 10 mg PO DAILY #10 tablet 07/11/20 07/18/20 Unknown Rx Fluticasone [Flonase] 1 spray NS QDAY PRN 07/18/20 07/18/20 Unknown History Review of Systems Constitutional: no fever, no chills Ears, nose, mouth and throat: no nasal congestion, no sore throat Cardiovascular: chest pain, no palpitations Respiratory: cough, shortness of breath Gastrointestinal: no abdominal pain, no nausea, no vomiting, no diarrhea Genitourinary Female: no pelvic pain, no flank pain, no dysuria, no hematuria Musculoskeletal: no neck pain, no low back pain Integumentary: no rash, no pruritis Neurological: no headaches, no confusion Psychiatric: no anxiety, no depression Exam - Constitutional Vitals: Temp Pulse Resp BP Pulse Ox 99.0 F 132 H 25 H 144/78 96 07/17/20 21:40 07/18/20 01:45 07/18/20 01:45 07/18/20 01:45 07/18/20 01:45 General appearance: Present: no acute distress, well-nourished, obese (morbidly) - EENT Eyes: Present: PERRL, EOM intact. Absent: scleral icterus ENT: hearing intact, clear oral mucosa, dentition normal - Neck Neck: Present: supple, normal ROM - Respiratory Respiratory effort: normal Respiratory: bilateral: diminished - Cardiovascular Rhythm: regular Heart Sounds: Present: S1 & S2. Absent: gallop, systolic murmur, diastolic murmur, rub - Extremities Extremities: no ischemia, pulses intact, pulses symmetrical, No edema, Full ROM Peripheral Pulses: within normal limits - Abdominal General gastrointestinal: Present: soft, non-tender, distended (8 months ) - Integumentary Integumentary: Present: clear, warm, dry - Musculoskeletal Musculoskeletal: strength equal bilaterally - Psychiatric Psychiatric: appropriate mood/affect, intact judgment & insight, memory intact, cooperative - Neurologic Neurologic: CNII-XII intact, no focal deficits, moves all extremities Results - Labs CBC & Chem 7: 07/17/20 18:04 07/17/20 23:39 Labs: Abnormal lab results 07/17/20 07/17/20 07/17/20 Range/Units 18:04 18:04 18:04 Lymph # (Auto) 0.9 L (1.2-5.4) K/mm3 Seg Neutrophils % 80.3 H (40.0-70.0) % D-Dimer (0-234) ng/mlDDU Sodium 136 L (137-145) mmol/L BUN 3 L (7-17) mg/dL Creatinine 0.4 L (0.6-1.2) mg/dL Glucose 121 H (65-100) mg/dL Lactic Acid 2.10 H* (0.7-2.0) mmol/L Lactate Dehydrogenase (91-180) units/L C-Reactive Protein (0.00-1.30) mg/dL Total Protein 5.8 L (6.3-8.2) g/dL Albumin 3.2 L (3.9-5) g/dL U Epithel Cells (Auto) (0-13.0) /HPF 07/17/20 07/17/20 07/17/20 Range/Units 23:39 23:39 Unknown Lymph # (Auto) (1.2-5.4) K/mm3 Seg Neutrophils % (40.0-70.0) % D-Dimer 620.88 H (0-234) ng/mlDDU Sodium (137-145) mmol/L BUN (7-17) mg/dL Creatinine (0.6-1.2) mg/dL Glucose 168 H (65-100) mg/dL Lactic Acid (0.7-2.0) mmol/L Lactate Dehydrogenase 375 H (91-180) units/L C-Reactive Protein 7.10 H (0.00-1.30) mg/dL Total Protein (6.3-8.2) g/dL Albumin (3.9-5) g/dL U Epithel Cells (Auto) 17.0 H (0-13.0) /HPF Assessment and Plan 1.Pneumonia: Patient placed on empiric IV antibiotics. We will also place on isolation precautions for possible COVID-19. Will await further work-up for COVID-19. We will request evaluation by infectious disease. 2.Morbid Obesity: Will appreciate dietary evaluation. 3.H/O obstructive sleep apnea 4. DVT prophylaxis: Patient placed on subcutaneous heparin 5. CODE STATUS: Full code
[2020-07-18] MEDS ORDERED: MAGNESIUM HYDROXIDE (MOM) ORAL LIQD UDC PO PRN (03:59)
[2020-07-18] MEDS: SODIUM CHLORIDE 0.9% 1000 ML 1,000 ML IV SCH ×3 (04:36→20:10)
[2020-07-18] MEDS: HEPARIN 5,000 UNIT/1 ML VIAL SUB-Q SCH ×3 (05:37→21:34)
--- NOTE | 2020-07-18 06:12 | Progress Note ---
Assessment and Plan - Patient Problems (1) Bilateral pneumonia Onset Date: ~07/17/20 Current Visit: Yes Status: Acute Qualifiers: Pneumonia type: due to unspecified organism Lung location: unspecified part of lung Qualified Code(s): J18.9 - Pneumonia, unspecified organism Plan to address problem: Pt is being followed by Internal Medicine Dr Torres has seen pt and make recommendations. (2) with 30 completed weeks gestation Onset Date: ~07/14/20 Current Visit: Yes Status: Acute Plan to address problem: Pt in good spirits this AM. States her sx started @ a week ago. She states she came in last night because she could not walk across to the toilet without needing to stop and catch her breath. Reports she does feel better this AM. Pt has other children they are with her cousin. She feels they are safe and will be taken care of. I will have Case mgt see her to assist with any needs for this . NSTs are to be done Qshift. Charge Nurse Berna placing pt on monitor at time of note. Pt reports good FM, denies ctx, no LOF, no VB. Will consult with Dr Gannon. Continue care as noted. Subjective - Subjective Date of service: 07/18/20 (Initial visit on medical floor Pt has just arrived from the ED) Principal diagnosis: IUP 305d; morbid obesity; poss pneumonia Patient reports: movement normal, other (Pt states she is SOB when she is ambulating) Objective - Vital Signs Vital Signs: Vital Signs - 12hr 07/17/20 07/17/20 07/17/20 21:38 21:40 22:15 Temperature 99.0 F Pulse Rate 124 H 124 H 125 H Respiratory 13 13 31 H Rate Blood Pressure 97/54 101/38 Blood Pressure 97/54 [Right] O2 Sat by Pulse 96 96 Oximetry 07/18/20 07/18/20 07/18/20 00:30 01:00 01:15 Temperature Pulse Rate 131 H 131 H 127 H Respiratory 12 17 25 H Rate Blood Pressure 159/66 159/66 Blood Pressure [Right] O2 Sat by Pulse 96 96 97 Oximetry 07/18/20 07/18/20 07/18/20 01:31 01:45 02:31 Temperature Pulse Rate 129 H 132 H Respiratory 23 25 H Rate Blood Pressure 144/78 144/78 114/68 Blood Pressure [Right] O2 Sat by Pulse 96 96 95 Oximetry 07/18/20 07/18/20 07/18/20 02:45 03:01 04:14 Temperature 98.8 F Pulse Rate 137 H 123 H 110 H Respiratory 15 17 18 Rate Blood Pressure 129/88 116/70 Blood Pressure [Right] O2 Sat by Pulse 95 95 96 Oximetry - Exam Breasts: deferred Cardiovascular: Regular rate Lungs: Normal air movement, Other (wheezing bilateral) Abdomen: Present: normal appearance, soft. Absent: distention, tenderness Uterus: Present: normal FHR: auscultation normal (NST is being started @ this time) Uterine Contraction Monitor Mode: External Uterine Contraction Pattern: Absent Extremities: other (pt is obese; hands are puffy, edema noted below the knee bilateral) Deep Tendon Reflex Grade: Normal +2 - Labs Labs: Abnormal Labs 07/17/20 07/17/20 07/17/20 18:04 18:04 18:04 Lymph # (Auto) 0.9 L Seg Neutrophils % 80.3 H D-Dimer Sodium 136 L BUN 3 L Creatinine 0.4 L Glucose 121 H Lactic Acid 2.10 H* Lactate Dehydrogenase C-Reactive Protein Total Protein 5.8 L Albumin 3.2 L U Epithel Cells (Auto) 07/17/20 07/17/20 07/17/20 23:39 23:39 Unknown Lymph # (Auto) Seg Neutrophils % D-Dimer 620.88 H Sodium BUN Creatinine Glucose 168 H Lactic Acid Lactate Dehydrogenase 375 H C-Reactive Protein 7.10 H Total Protein Albumin U Epithel Cells (Auto) 17.0 H Laboratory Results - last 24 hr 07/17/20 07/17/20 07/17/20 18:04 18:04 18:04 WBC 5.9 RBC 3.67 Hgb 11.4 Hct 34.5 MCV 94 MCH 31 MCHC 33 RDW 14.5 Plt Count 250 Lymph % (Auto) 14.4 [place] % (Auto) 4.9 Eos % (Auto) 0.1 Baso % (Auto) 0.3 Lymph # (Auto) 0.9 L [place] # (Auto) 0.3 Eos # (Auto) 0.0 Baso # (Auto) 0.0 Seg Neutrophils % 80.3 H Seg Neutrophils # 4.8 PT INR D-Dimer VBG pH Sodium 136 L Potassium 3.7 Chloride 100.0 Carbon Dioxide 24 Anion Gap 16 BUN 3 L Creatinine 0.4 L Estimated GFR > 60 BUN/Creatinine Ratio 8 Glucose 121 H Lactic Acid 2.10 H* Calcium 8.7 Ferritin Total Bilirubin 0.40 AST 29 ALT 19 Alkaline Phosphatase 94 Lactate Dehydrogenase C-Reactive Protein Total Protein 5.8 L Albumin 3.2 L Albumin/Globulin Ratio 1.2 Urine Color Urine Turbidity Urine pH Ur Specific [place] Urine Protein Urine Glucose (UA) Urine Ketones Urine Blood Urine Nitrite Urine Bilirubin Urine Urobilinogen Ur Leukocyte Esterase Urine WBC (Auto) Urine RBC (Auto) U Epithel Cells (Auto) Urine Bacteria (Auto) Urine Mucus 07/17/20 07/17/20 07/17/20 18:04 18:04 20:31 WBC RBC Hgb Hct MCV MCH MCHC RDW Plt Count Lymph % (Auto) [place] % (Auto) Eos % (Auto) Baso % (Auto) Lymph # (Auto) [place] # (Auto) Eos # (Auto) Baso # (Auto) Seg Neutrophils % Seg Neutrophils # PT 13.1 INR 0.98 D-Dimer VBG pH 7.371 Sodium Potassium Chloride Carbon Dioxide Anion Gap BUN Creatinine Estimated GFR BUN/Creatinine Ratio Glucose Lactic Acid 1.50 Calcium Ferritin Total Bilirubin AST ALT Alkaline Phosphatase Lactate Dehydrogenase C-Reactive Protein Total Protein Albumin Albumin/Globulin Ratio Urine Color Urine Turbidity Urine pH Ur Specific [place] Urine Protein Urine Glucose (UA) Urine Ketones Urine Blood Urine Nitrite Urine Bilirubin Urine Urobilinogen Ur Leukocyte Esterase Urine WBC (Auto) Urine RBC (Auto) U Epithel Cells (Auto) Urine Bacteria (Auto) Urine Mucus 07/17/20 07/17/20 07/17/20 23:39 23:39 23:39 WBC RBC Hgb Hct MCV MCH MCHC RDW Plt Count Lymph % (Auto) [place] % (Auto) Eos % (Auto) Baso % (Auto) Lymph # (Auto) [place] # (Auto) Eos # (Auto) Baso # (Auto) Seg Neutrophils % Seg Neutrophils # PT INR D-Dimer VBG pH Sodium Potassium Chloride Carbon Dioxide Anion Gap BUN Creatinine Estimated GFR BUN/Creatinine Ratio Glucose 168 H Lactic Acid 1.50 Calcium Ferritin 126.2 Total Bilirubin AST ALT Alkaline Phosphatase Lactate Dehydrogenase 375 H C-Reactive Protein 7.10 H Total Protein Albumin Albumin/Globulin Ratio Urine Color Urine Turbidity Urine pH Ur Specific [place] Urine Protein Urine Glucose (UA) Urine Ketones Urine Blood Urine Nitrite Urine Bilirubin Urine Urobilinogen Ur Leukocyte Esterase Urine WBC (Auto) Urine RBC (Auto) U Epithel Cells (Auto) Urine Bacteria (Auto) Urine Mucus 07/17/20 07/17/20 07/18/20 23:39 Unknown 02:59 WBC RBC Hgb Hct MCV MCH MCHC RDW Plt Count Lymph % (Auto) [place] % (Auto) Eos % (Auto) Baso % (Auto) Lymph # (Auto) [place] # (Auto) Eos # (Auto) Baso # (Auto) Seg Neutrophils % Seg Neutrophils # PT INR D-Dimer 620.88 H VBG pH Sodium Potassium Chloride Carbon Dioxide Anion Gap BUN Creatinine Estimated GFR BUN/Creatinine Ratio Glucose Lactic Acid 1.30 Calcium Ferritin Total Bilirubin AST ALT Alkaline Phosphatase Lactate Dehydrogenase C-Reactive Protein Total Protein Albumin Albumin/Globulin Ratio Urine Color Maria G Urine Turbidity Slightly-cloudy Urine pH 6.0 Ur Specific [place] 1.018 Urine Protein 30 mg/dl Urine Glucose (UA) Neg Urine Ketones 20 Urine Blood Neg Urine Nitrite Neg Urine Bilirubin Neg Urine Urobilinogen 4.0 Ur Leukocyte Esterase Neg Urine WBC (Auto) 6.0 Urine RBC (Auto) 4.0 U Epithel Cells (Auto) 17.0 H Urine Bacteria (Auto) 4+ Urine Mucus Few
--- NOTE | 2020-07-18 08:52 | Event Note ---
Date: 07/18/20 Continue current management, await ID consult and pending lab work. Start on dvt prophy, continue current abx as patient had recent management
[2020-07-18] MEDS: ALUM-MAG HYDROXIDE-SIMETHICONE 200-200-20MG/5ML ORAL LIQD 30 ML PO PRN (10:39)
[2020-07-18] MEDS: DOCUSATE SODIUM 100 MG CAP PO SCH ×2 (10:39→21:33)
--- NOTE | 2020-07-18 12:44 | Vascular Lab Report ---
DUPLEX DOPPLER LOWER EXTREMITY VEINS, BILATERAL INDICATION: dvt. TECHNIQUE: Duplex doppler imaging was performed through the veins of both lower extremities using ve nous compression and other maneuvers. COMPARISON: No relevant prior imaging study available. FINDINGS: Right Common femoral vein: Negative. Right Superficial femoral vein: Negative. Right Popliteal vein: Negative. Right Calf veins: Negative. Left Common femoral vein: Negative. Left Superficial femoral vein: Negative. Left Popliteal vein: Negative. Left Calf veins: Negative. Additional findings: None. IMPRESSION: No sonographic evidence for DVT in either lower extremity. Signer Name: Marcelo West Jr, MD Signed: 07/18/2020 12:40 PM Workstation Name: [id number]
--- NOTE | 2020-07-18 13:15 | Consultation ---
History of Present Illness - Reason for Consult Consult date: 07/18/20 COVID PUI, Requesting physician: INGE GALLAGHER - History of Present Illness The patient is a 29-year-old female who is about 30 weeks was admitted to the hospital with complaints of chest pain and shortness of breath going on for the past 1 week. She had initially come to the emergency room a week ago. Upon evaluation, she was noted to have a low-grade fever. CT a showed bilateral airspace disease concerning for multifocal pneumonia, negative for pulmonary embolism. Infectious diseases was consulted due to concern for possible COVID- 19. Patient feels a little better while on oxygen. She also reports a cough with some sputum production. No vomiting, diarrhea, no urinary burning. No headache. Review of Systems: as above. Past History Past Medical History: other (CARMEN) Past Surgical History: No surgical history Social history: no significant social history Family history: no significant family history Medications and Allergies Allergies Allergy/AdvReac Type Severity Reaction Status Date / Time No Known Allergies Allergy Verified 06/10/20 17:12 Home Medications Medication Instructions Recorded Confirmed Last Taken Type predniSONE [Deltasone] 20 mg PO QDAY #4 tablet 07/20/18 07/18/20 Unknown Rx Loratadine [Claritin] 10 mg PO DAILY #10 tablet 07/11/20 07/18/20 Unknown Rx Fluticasone [Flonase] 1 spray NS QDAY PRN 07/18/20 07/18/20 Unknown History Active Meds: Active Medications Acetaminophen (Tylenol) 650 mg PO Q4H PRN PRN Reason: Pain MILD(1-3)/Fever >100.5/MATA Al Hydrox/Mg Hydrox/Simethicone (Alum-Mag Hydrox-Simeth [phone]/5ml) 30 ml PO Q4H PRN PRN Reason: Indigestion Last Admin: 07/18/20 10:39 Dose: 30 ml Documented by: Docusate Sodium (Colace) 100 mg PO BID [facility] Last Admin: 07/18/20 10:39 Dose: 100 mg Documented by: Heparin Sodium (Porcine) (Heparin) 5,000 unit SUB-Q Q8HR [facility] Last Admin: 07/18/20 13:00 Dose: 5,000 unit Documented by: Ceftriaxone Sodium (Rocephin/Ns 2 Gm/100 Ml) 2 gm in 100 mls @ 200 mls/hr IV Q24HR@2200 MICHAEL; Protocol Azithromycin 500 mg/ Sodium (Chloride) 250 mls @ 250 mls/hr IV Q24HR@2200 MICHAEL; Protocol Sodium Chloride (Nacl 0.9% 1000 Ml) 1,000 mls @ 125 mls/hr IV DIRECT MICHAEL Last Admin: 07/18/20 12:54 Dose: 125 mls/hr Documented by: Magnesium Hydroxide (Milk Of Magnesia) 30 ml PO Q4H PRN PRN Reason: Constipation Sodium Chloride (Sodium Chloride Flush Syringe 10 Ml) 10 ml IV BID MICHAEL Last Admin: 07/18/20 10:39 Dose: 10 ml Documented by: Sodium Chloride (Sodium Chloride Flush Syringe 10 Ml) 10 ml IV PRN PRN PRN Reason: LINE FLUSH Physical Examination - Physical Exam Narrative exam: Physical Exam (reviewed in chart due to PPE conservation and minimize risk of transmission) Constitutional: limited due to PPE conservation strategy Head, Ears, Nose: limited due to PPE conservation strategy Eyes: limited due to PPE conservation strategy Neck: limited due to PPE conservation strategy Oral: limited due to PPE conservation strategy Cardiovascular: limited due to PPE conservation strategy Respiratory: limited due to PPE conservation strategy GI: limited due to PPE conservation strategy Musculoskeletal: limited due to PPE conservation strategy Skin: limited due to PPE conservation strategy Hem/Lymphatic: limited due to PPE conservation strategy Psych: limited due to PPE conservation strategy Neurological: limited due to PPE conservation strategy - Constitutional Vitals: Vital Signs Temp Pulse Resp BP Pulse Ox 98.8 F 127 H 20 109/62 94 07/18/20 08:48 07/18/20 08:34 07/18/20 08:34 07/18/20 08:34 07/18/20 10:12 Temperature -Last 24 Hours Temperature 98.8 F Temperature 98.8 F Temperature 98.8 F Temperature 99.0 F Temperature 100.3 F Results - Labs CBC & Chem 7: 07/17/20 18:04 07/17/20 23:39 Labs: Abnormal lab results 07/17/20 07/17/20 07/17/20 Range/Units 18:04 18:04 18:04 Lymph # (Auto) 0.9 L (1.2-5.4) K/mm3 Seg Neutrophils % 80.3 H (40.0-70.0) % D-Dimer (0-234) ng/mlDDU Sodium 136 L (137-145) mmol/L BUN 3 L (7-17) mg/dL Creatinine 0.4 L (0.6-1.2) mg/dL Glucose 121 H (65-100) mg/dL Lactic Acid 2.10 H* (0.7-2.0) mmol/L Lactate Dehydrogenase (91-180) units/L C-Reactive Protein (0.00-1.30) mg/dL Total Protein 5.8 L (6.3-8.2) g/dL Albumin 3.2 L (3.9-5) g/dL U Epithel Cells (Auto) (0-13.0) /HPF 07/17/20 07/17/20 07/17/20 Range/Units 23:39 23:39 Unknown Lymph # (Auto) (1.2-5.4) K/mm3 Seg Neutrophils % (40.0-70.0) % D-Dimer 620.88 H (0-234) ng/mlDDU Sodium (137-145) mmol/L BUN (7-17) mg/dL Creatinine (0.6-1.2) mg/dL Glucose 168 H (65-100) mg/dL Lactic Acid (0.7-2.0) mmol/L Lactate Dehydrogenase 375 H (91-180) units/L C-Reactive Protein 7.10 H (0.00-1.30) mg/dL Total Protein (6.3-8.2) g/dL Albumin (3.9-5) g/dL U Epithel Cells (Auto) 17.0 H (0-13.0) /HPF - Imaging and Cardiology CT scan - chest: report reviewed, image reviewed (b/l airspace opacities) Assessment and Plan Cultures: Coronavirus PCR: Pending Blood culture: In process A/P: 29-year-old female who is about 30 weeks admitted with chest pain and shortness of breath of 1 week duration: #Bilateral pneumonia: COVID-19 PCR is pending. #: ~ 30 weeks. 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 #Morbid obesity: associated with adverse outcomes in COVID-19. Recs: -High suspicion for COVID-19, if positive, patient is interested in IV Remdesivir. Discussed limited literature in terms of adverse effects on the fet us. Patient agrees to Remdesivir. -If COVID-19 is positive, considering her morbid obesity and risk of adverse outcomes, would also initiate IV/PO Dexamethasone 6 mg daily x 10 days -prophylactic anticoagulation based on d-dimer -trend ferritin, LDH, d-dimer, CRP every 2-3 days for risk stratification and to assess disease progression -Procalcitonin is low, if COVID-19 is positive, will discontinue antibiotics Man Hercules MD, FACP [facility] ([facility] C: [phone] O: [phone] F: [phone]
[2020-07-18] MEDS: ACETAMINOPHEN 325 MG TAB PO PRN ×2 (14:48→20:09)
[2020-07-18] MEDS ORDERED: FLUTICASONE PROPIONATE NASAL SPRAY 16 GM NS PRN (15:45)
[2020-07-18] MEDS: DEXAMETHASONE 4 MG TAB PO SCH (17:31)
[2020-07-18] MEDS: ZINC SULFATE 220 MG CAP PO SCH (21:33)
[2020-07-18] MEDS: ASCORBIC ACID 500 MG TAB PO SCH (21:33)
[2020-07-18] MEDS ORDERED: AZITHROMYCIN 500 MG in SODIUM CHLORIDE 0.9% 250ML 250 ML IV SCH (22:00)
[2020-07-18] MEDS ORDERED: cefTRIAXone/NS 2 GM/100 ML 2 GM/100 ML BAG IV SCH (22:00)
[2020-07-18] MEDS: ONDANSETRON 4 MG/2 ML INJ IV PRN (22:27)
[2020-07-19] MEDS: HEPARIN 5,000 UNIT/1 ML VIAL SUB-Q SCH ×3 (04:59→21:33)
[2020-07-19] MEDS: SODIUM CHLORIDE 0.9% 1000 ML 1,000 ML IV SCH ×3 (05:00→21:33)
[2020-07-19] MEDS: ACETAMINOPHEN 325 MG TAB PO PRN ×2 (05:02→18:36)
--- NOTE | 2020-07-19 09:03 | Progress Note ---
Assessment and Plan A: 29 y.o. @ 30+ wks, with pneumonia and COVID-19 +. RNST this AM. No OB complaints. P: Continue with NST q shift to monitor status. Medical management per hospitalist. - Patient Problems (1) Bilateral pneumonia Onset Date: ~07/17/20 Current Visit: Yes Status: Acute Qualifiers: Pneumonia type: due to unspecified organism Lung location: unspecified part of lung Qualified Code(s): J18.9 - Pneumonia, unspecified organism (2) with 30 completed weeks gestation Onset Date: ~07/14/20 Current Visit: Yes Status: Acute Subjective - Subjective Date of service: 07/19/20 (Pt states feeling anxious) Principal diagnosis: IUP 305d; morbid obesity; poss pneumonia Interval history: Pt is a 29 y.o. @ 30.4 wks based off early u/s at outside hospital, EDC of 09/22/2020. Presented to labor and delivery triage d/t chest pain. She has had no care, because "no doctor will take me because of my weight." She has a history of X 2 X3, sleep apenia, and obesity. 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 Denies use of drugs, alcohol. She had one child pass away in 2018 at 1 y.o. d/t infection. Patient reports: movement normal, other (Pt states she is SOB when she is ambulating) Objective - Vital Signs Vital Signs: Vital Signs - 12hr 07/18/20 07/19/20 07/19/20 23:04 05:55 07:30 Temperature 97.6 F 98.7 F Pulse Rate 118 H 114 H Respiratory 20 20 Rate Blood Pressure 146/82 Blood Pressure 130/68 [Right] O2 Sat by Pulse 96 97 94 Oximetry - Exam Narrative Exam: Pt denies LOF, vag bleeding, ctxs. States positive movement. Breasts: deferred Cardiovascular: Other (Tachycardia) Lungs: Normal air movement Abdomen: Present: normal appearance, soft Uterus: Present: normal FHR: category 1 (Appropriate for gestational age. ) Uterine Contraction Monitor Mode: External Uterine Contraction Pattern: Absent Extremities: edema (+ 2) - Labs Labs: Abnormal Labs 07/17/20 07/17/20 07/17/20 18:04 18:04 18:04 Lymph # (Auto) 0.9 L Seg Neutrophils % 80.3 H D-Dimer Sodium 136 L BUN 3 L Creatinine 0.4 L Glucose 121 H Lactic Acid 2.10 H* Lactate Dehydrogenase C-Reactive Protein Total Protein 5.8 L Albumin 3.2 L U Epithel Cells (Auto) Coronavirus (PCR) 07/17/20 07/17/20 07/17/20 23:39 23:39 Unknown Lymph # (Auto) Seg Neutrophils % D-Dimer 620.88 H Sodium BUN Creatinine Glucose 168 H Lactic Acid Lactate Dehydrogenase 375 H C-Reactive Protein 7.10 H Total Protein Albumin U Epithel Cells (Auto) 17.0 H Coronavirus (PCR) 07/18/20 10:15 Lymph # (Auto) Seg Neutrophils % D-Dimer Sodium BUN Creatinine Glucose Lactic Acid Lactate Dehydrogenase C-Reactive Protein Total Protein Albumin U Epithel Cells (Auto) Coronavirus (PCR) Positive A Laboratory Results - last 24 hr 07/17/20 07/18/20 07/18/20 23:39 08:28 10:15 Procalcitonin < 0.05 Nasal Screen MRSA (PCR) Negative Coronavirus (PCR) Positive A
--- NOTE | 2020-07-19 09:29 | Consultation ---
History of Present Illness Consult date: 07/19/20 Requesting physician: NICK GUERRERO Consult reason: other (pause) History of present illness: The patient is a 29-year-old female who is about 30 weeks with a past medical history of untreated CARMEN. She is previously unknown to our practice. She presented with c/o chest pain and shortness of breath for 1 week prior to arrival. Chest CTA showed bilateral airspace disease concerning for multifocal pneumonia, negative for pulmonary embolism. Pt subsequently found to be COVID-19 positive. She was noted to have transient 2:1 AV block on telemetry and thus cardiology has been consulted. Past History Past Medical History: other (CARMEN) Past Surgical History: No surgical history Social history: no significant social history Family history: no significant family history Medications and Allergies Allergies Allergy/AdvReac Type Severity Reaction Status Date / Time No Known Allergies Allergy Verified 06/10/20 17:12 Home Medications Medication Instructions Recorded Confirmed Last Taken Type predniSONE [Deltasone] 20 mg PO QDAY #4 tablet 07/20/18 07/18/20 Unknown Rx Loratadine [Claritin] 10 mg PO DAILY #10 tablet 07/11/20 07/18/20 Unknown Rx Fluticasone [Flonase] 1 spray NS QDAY PRN 07/18/20 07/18/20 Unknown History Active Meds: Active Medications Acetaminophen (Tylenol) 650 mg PO Q4H PRN PRN Reason: Pain MILD(1-3)/Fever >100.5/MATA Last Admin: 07/19/20 05:02 Dose: 650 mg Documented by: Al Hydrox/Mg Hydrox/Simethicone (Alum-Mag Hydrox-Simeth [id number]/5ml) 30 ml PO Q4H PRN PRN Reason: Indigestion Last Admin: 07/18/20 10:39 Dose: 30 ml Documented by: Ascorbic Acid (Vitamin C) 1,000 mg PO BID MICHAEL Last Admin: 07/18/20 21:33 Dose: 1,000 mg Documented by: Azithromycin (Zithromax) 500 mg PO Q24H MICHAEL Cholecalciferol (Vitamin D3) 5,000 unit PO DAILY MICHAEL Dexamethasone (Decadron) 6 mg PO DAILY MICHAEL Stop: 07/27/20 10:01 Last Admin: 07/18/20 17:31 Dose: 6 mg Documented by: Docusate Sodium (Colace) 100 mg PO BID [facility] Last Admin: 07/18/20 21:33 Dose: 100 mg Documented by: Fluticasone Propionate (Flonase) 50 mcg NS QDAY PRN PRN Reason: Allergy Symptoms Heparin Sodium (Porcine) (Heparin) 5,000 unit SUB-Q Q8HR [facility] Last Admin: 07/19/20 04:59 Dose: 5,000 unit Documented by: Sodium Chloride (Nacl 0.9% 1000 Ml) 1,000 mls @ 125 mls/hr IV DIRECT [facility] Last Admin: 07/19/20 05:00 Dose: 125 mls/hr Documented by: Magnesium Hydroxide (Milk Of Magnesia) 30 ml PO Q4H PRN PRN Reason: Constipation Ondansetron HCl (Zofran) 4 mg IV Q8H PRN PRN Reason: Nausea And Vomiting Last Admin: 07/18/20 22:27 Dose: 4 mg Documented by: Sodium Chloride (Sodium Chloride Flush Syringe 10 Ml) 10 ml IV BID [facility] Last Admin: 07/18/20 21:33 Dose: Not Given Documented by: Sodium Chloride (Sodium Chloride Flush Syringe 10 Ml) 10 ml IV PRN PRN PRN Reason: LINE FLUSH Zinc Sulfate (Zinc Sulfate) 220 mg PO BID [facility] Last Admin: 07/18/20 21:33 Dose: 220 mg Documented by: Review of Systems Constitutional: no weight loss, no weight gain Ears, nose, mouth and throat: no ear pain, no nose pain, no sinus pressure, no sinus pain Cardiovascular: chest pain, shortness of breath, no orthopnea, no palpitations, no rapid/irregular heart beat, no edema, no syncope, no lightheadedness, no paroxysmal nocturnal dyspnea Respiratory: cough, shortness of breath, dyspnea on exertion Gastrointestinal: no abdominal pain, no nausea, no vomiting, no diarrhea, no constipation, no change in bowel habits Genitourinary Female: , no pelvic pain, no flank pain, no dysuria, no urinary frequency, no urgency Musculoskeletal: no neck stiffness, no neck pain, no shooting arm pain, no arm numbness/tingling, no low back pain, no shooting leg pain Integumentary: no rash, no pruritis, no redness, no sores, no wounds Neurological: no head injury, no paralysis, no weakness, no parathesias, no numbness, no tingling, no seizures, no syncope Psychiatric: no anxiety Endocrine: no cold intolerance, no heat intolerance Hematologic/Lymphatic: no easy bruising Allergic/Immunologic: no urticaria Physical Examination Vital Signs Temp Pulse Resp BP Pulse Ox 100.3 F H 133 H 20 149/74 97 07/17/20 17:56 07/17/20 17:56 07/17/20 17:56 07/17/20 17:56 07/17/20 17:56 General appearance: no acute distress HEENT: Positive: PERRL, Normocephaly, Mucus Membranes Moist Neck: Positive: neck supple, trachea midline Cardiac: Positive: Reg Rate and Rhythm, S1/S2 Neuro: Positive: Grossly Intact Abdomen: Positive: Other () Skin: Negative: Rash Musculoskeletal: No Pain Extremities: Absent: edema Results 07/17/20 18:04 07/17/20 23:39 - Imaging and Cardiology EKG: report reviewed, image reviewed EKG interpretations - Telemetry EKG Rhythm: Sinus Rhythm - EKG Sinus rhythms and dysrhythmias: sinus rhythm, sinus tachycardia Assessment and Plan tele reviewed - Pt noted to have 2 bouts of 2:1 AV block this morning around 7AM, pt reports she was asleep at this time. She does have a history of untreated CARMEN. Suspect transient AVB is secondary to untreated sleep apnea. Recommend CPAP during sleeping hours and cont to avoid AV jassi blocking agents. Cont to monitor closely on telemetry. Check thyroid profile. Plan to obtain echo once COVID infection is adequately managed - can be done as OP. Chest pain appears pleuritic, currently resolved. ECG with sinus tachycardia, no acute ischemic changes. Obtain Huseyin and f/u ECG in AM. Will follow. The patient has been seen in conjunction with Dr. Cuadra who agrees with the assessment and plan of care. - Patient Problems (1) COVID-19 virus infection Current Visit: Yes Status: Acute (2) Bilateral pneumonia Onset Date: ~07/17/20 Current Visit: Yes Status: Acute Qualifiers: Pneumonia type: due to unspecified organism Lung location: unspecified part of lung Qualified Code(s): J18.9 - Pneumonia, unspecified organism (3) Chest pain Current Visit: Yes Status: Acute (4) Current Visit: Yes Status: Acute (5) Sleep apnea Current Visit: Yes Status: Chronic (6) Mobitz type 1 second degree AV block Current Visit: Yes Status: Acute
[2020-07-19] MEDS: ZINC SULFATE 220 MG CAP PO SCH ×2 (11:00→21:33)
[2020-07-19] MEDS: CHOLECALCIFEROL (VIT D3) 5,000 UNIT TAB PO SCH ×2 (11:00→11:05)
[2020-07-19] MEDS: DOCUSATE SODIUM 100 MG CAP PO SCH ×2 (11:00→21:33)
[2020-07-19] MEDS: DEXAMETHASONE 4 MG TAB PO SCH (11:00)
[2020-07-19] MEDS: ASCORBIC ACID 500 MG TAB PO SCH ×2 (11:00→21:33)
--- NOTE | 2020-07-19 11:03 | Consultation ---
History of Present Illness Consult date: 07/19/20 Requesting physician: NICK GUERRERO Reason for consult: other (COVID 19) History of present illness: 29 y/o female, admitted here 30 weeks gestation with shortness of breath. CTA done which was negative for PE but had bilateral patchy airspace disease. Patient tested for COVID and found to be positive. She is currently on the medical floor and satting in the mid 90's on room air. Pulmonary was consulted secondary to COVID. Patient also has a history of CARMEN, not currently on any therapy for this. She has a BMI of 63 Past History Past Medical History: other (CARMEN) Past Surgical History: No surgical history Social history: no significant social history Family history: no significant family history Medications and Allergies Allergies Allergy/AdvReac Type Severity Reaction Status Date / Time No Known Allergies Allergy Verified 06/10/20 17:12 Home Medications Medication Instructions Recorded Confirmed Last Taken Type predniSONE [Deltasone] 20 mg PO QDAY #4 tablet 07/20/18 07/18/20 Unknown Rx Loratadine [Claritin] 10 mg PO DAILY #10 tablet 07/11/20 07/18/20 Unknown Rx Fluticasone [Flonase] 1 spray NS QDAY PRN 07/18/20 07/18/20 Unknown History Active Meds: Active Medications Acetaminophen (Tylenol) 650 mg PO Q4H PRN PRN Reason: Pain MILD(1-3)/Fever >100.5/MATA Last Admin: 07/19/20 05:02 Dose: 650 mg Documented by: Al Hydrox/Mg Hydrox/Simethicone (Alum-Mag Hydrox-Simeth [id number]/5ml) 30 ml PO Q4H PRN PRN Reason: Indigestion Last Admin: 07/18/20 10:39 Dose: 30 ml Documented by: Ascorbic Acid (Vitamin C) 1,000 mg PO BID MICHAEL Last Admin: 07/18/20 21:33 Dose: 1,000 mg Documented by: Azithromycin (Zithromax) 500 mg PO Q24H MICHAEL Cholecalciferol (Vitamin D3) 5,000 unit PO DAILY MICHAEL Dexamethasone (Decadron) 6 mg PO DAILY MICHAEL Stop: 07/27/20 10:01 Last Admin: 07/18/20 17:31 Dose: 6 mg Documented by: Docusate Sodium (Colace) 100 mg PO BID MICHAEL Last Admin: 07/18/20 21:33 Dose: 100 mg Documented by: Fluticasone Propionate (Flonase) 50 mcg NS QDAY PRN PRN Reason: Allergy Symptoms Heparin Sodium (Porcine) (Heparin) 5,000 unit SUB-Q Q8HR [facility] Last Admin: 07/19/20 04:59 Dose: 5,000 unit Documented by: Sodium Chloride (Nacl 0.9% 1000 Ml) 1,000 mls @ 125 mls/hr IV DIRECT [facility] Last Admin: 07/19/20 05:00 Dose: 125 mls/hr Documented by: Magnesium Hydroxide (Milk Of Magnesia) 30 ml PO Q4H PRN PRN Reason: Constipation Ondansetron HCl (Zofran) 4 mg IV Q8H PRN PRN Reason: Nausea And Vomiting Last Admin: 07/18/20 22:27 Dose: 4 mg Documented by: Sodium Chloride (Sodium Chloride Flush Syringe 10 Ml) 10 ml IV BID [facility] Last Admin: 07/18/20 21:33 Dose: Not Given Documented by: Sodium Chloride (Sodium Chloride Flush Syringe 10 Ml) 10 ml IV PRN PRN PRN Reason: LINE FLUSH Zinc Sulfate (Zinc Sulfate) 220 mg PO BID [facility] Last Admin: 07/18/20 21:33 Dose: 220 mg Documented by: Physical Examination Vital signs: Vital Signs Temp Pulse Resp BP Pulse Ox 100.3 F H 133 H 20 149/74 97 07/17/20 17:56 07/17/20 17:56 07/17/20 17:56 07/17/20 17:56 07/17/20 17:56 Patient not examined in person secondary to preservation of PPE in COVID 19 pandemic. Results - Laboratory Findings CBC and BMP: 07/17/20 18:04 07/17/20 23:39 PT/INR, D-dimer PT 13.1 Sec. (12.2-14.9) 07/17/20 18:04 INR 0.98 (0.87-1.13) 07/17/20 18:04 D-Dimer 620.88 ng/mlDDU (0-234) H 07/17/20 23:39 Abnormal lab findings: Abnormal Labs 07/17/20 07/17/20 07/17/20 18:04 18:04 18:04 Lymph # (Auto) 0.9 L Seg Neutrophils % 80.3 H D-Dimer Sodium 136 L BUN 3 L Creatinine 0.4 L Glucose 121 H Lactic Acid 2.10 H* Lactate Dehydrogenase C-Reactive Protein Total Protein 5.8 L Albumin 3.2 L U Epithel Cells (Auto) Coronavirus (PCR) 07/17/20 07/17/20 07/17/20 23:39 23:39 Unknown Lymph # (Auto) Seg Neutrophils % D-Dimer 620.88 H Sodium BUN Creatinine Glucose 168 H Lactic Acid Lactate Dehydrogenase 375 H C-Reactive Protein 7.10 H Total Protein Albumin U Epithel Cells (Auto) 17.0 H Coronavirus (PCR) 07/18/20 10:15 Lymph # (Auto) Seg Neutrophils % D-Dimer Sodium BUN Creatinine Glucose Lactic Acid Lactate Dehydrogenase C-Reactive Protein Total Protein Albumin U Epithel Cells (Auto) Coronavirus (PCR) Positive A - Diagnostic Findings Chest x-ray: image reviewed CT scan - chest: image reviewed Assessment and Plan 29 y/o female with COVID 19 pneumonia and untreated CARMEN 1. Continue to monitor from a pulmonary standpoint. Currently not requiring supplemental oxygen. Sats should be maintained at greater than 92% given . 2. Likely not able to Prone but will place order in chart, maybe patient could at least lie on her left side 3. Suggest checking inflammatory markers q48. Would go ahead and order and not wait for ID 4. Agree with steroids as ordered 5. No data available on human trial of remdesivir in patients. 6. Given her being , unsure of plasma risk or issues. Would have to defer to ID and to blood bank as they would likely no more about this. Will continue to follow.
--- NOTE | 2020-07-19 11:07 | Progress Note ---
Assessment and Plan Assessment and plan: 29 year old female with history of CARMEN and 8 months presentswith shortness of breath and chest pain. Shortness of breath was said to have started about a week ago however she started having some chest discomfort within the last 24 hours. She denies any fever or chills, no nausea vomiting, no headache or dizziness. Patient denies any sick contacts and no recent travel. She denies contact with anyone with COVID-19. Work-up in the emergency room today chest x-ray shows bilateral pneumonia. CT angiogram of the chest shows:. No CT evidence for pulmonary embolism given slight limitations. Diffuse patchy airspace disease throughout the lungs, more confluent within the periphery of the upper lobes. Multifocal pneumonia is favored. An atypical viral infection such as Covid cannot be excluded. Patient was started on empiric IV antibiotics and placed on isolation precautions. Patient has been discussed with the BLOOD BANK ORDER CONTROL CLERK team by the ER physician. - Patient Problems (1) COVID-19 virus infection Current Visit: Yes Status: Acute (2) Bilateral pneumonia Onset Date: ~07/17/20 Current Visit: Yes Status: Acute Qualifiers: Pneumonia type: due to unspecified organism Lung location: unspecified part of lung Qualified Code(s): J18.9 - Pneumonia, unspecified organism (3) Chest pain- Atypical -costochondirtis Current Visit: Yes Status: Acute (4) Current Visit: Yes Status: Acute (5) Sleep apnea Current Visit: Yes Status: Chronic (6) Anxiety vs Grief (7) morbid obesity (8)Mobitz type 1 second degree AV block Current Visit: Yes Status: Acute 07/19: Patient seen and examined, clinically stable, overnight Pauses being evaluated by ID. Continue steroids, wean per protocol, Monitor anti-inflammatory markers. BIPAP/CPAP AT NIGHT and during hours of sleep. Weight loss following delivery of her baby. Anticipate discharge tomorrow if continues to improve History Interval history: Patient seen and examined resting comfortably reports improvement no further chest pain noted. Nursing staff reported 3 pauses on telemetry monitoring. Patient is asymptomatic Hospitalist Physical - Physical exam Narrative exam: VITAL SIGNS: Reviewed. GENERAL: The patient appears normally developed, morbidly obese vital signs as documented. HEAD: No signs of head trauma. EYES: Pupils are equal. Extraocular motions intact. EARS: Hearing grossly intact. MOUTH: Oropharynx is normal. NECK: No adenopathy, no JVD. CHEST: Chest with clear breath sounds bilaterally. No wheezes, rales, or rhonchi. CARDIAC: Regular rate and rhythm. S1 and S2, without murmurs, gallops, or rubs. VASCULAR: No Edema. Peripheral pulses normal and equal in all extremities. ABDOMEN: Soft, gravidus, non tender and non distended. No rebound or guarding, and no masses palpated. Bowel Sounds normal. MUSCULOSKELETAL: Good range of motion of all major joints. Extremities without clubbing, cyanosis or edema. NEUROLOGIC EXAM: Alert and oriented x 3 No focal sensory or strength deficits. Speech normal. Follows commands. PSYCHIATRIC: Mood normal. SKIN: detail exam as documented in skin assessment - Constitutional Vitals: Temp Pulse Resp BP Pulse Ox 98.7 F 114 H 20 146/82 94 07/19/20 05:55 07/19/20 05:55 07/19/20 05:55 07/19/20 05:55 07/19/20 07:30 General appearance: Present: no acute distress Results - Labs CBC & Chem 7: 07/17/20 18:04 07/17/20 23:39 Labs: Laboratory Last Values WBC 5.9 K/mm3 (4.5-11.0) 07/17/20 18:04 RBC 3.67 M/mm3 (3.65-5.03) 07/17/20 18:04 Hgb 11.4 gm/dl (10.1-14.3) 07/17/20 18:04 Hct 34.5 % (30.3-42.9) 07/17/20 18:04 MCV 94 fl (79-97) 07/17/20 18:04 MCH 31 pg (28-32) 07/17/20 18:04 MCHC 33 % (30-34) 07/17/20 18:04 RDW 14.5 % (13.2-15.2) 07/17/20 18:04 Plt Count 250 K/mm3 (140-440) 07/17/20 18:04 Lymph % (Auto) 14.4 % (13.4-35.0) 07/17/20 18:04 [place] % (Auto) 4.9 % (0.0-7.3) 07/17/20 18:04 Eos % (Auto) 0.1 % (0.0-4.3) 07/17/20 18:04 Baso % (Auto) 0.3 % (0.0-1.8) 07/17/20 18:04 Lymph # (Auto) 0.9 K/mm3 (1.2-5.4) L 07/17/20 18:04 [place] # (Auto) 0.3 K/mm3 (0.0-0.8) 07/17/20 18:04 Eos # (Auto) 0.0 K/mm3 (0.0-0.4) 07/17/20 18:04 Baso # (Auto) 0.0 K/mm3 (0.0-0.1) 07/17/20 18:04 Seg Neutrophils % 80.3 % (40.0-70.0) H 07/17/20 18:04 Seg Neutrophils # 4.8 K/mm3 (1.8-7.7) 07/17/20 18:04 PT 13.1 Sec. (12.2-14.9) 07/17/20 18:04 INR 0.98 (0.87-1.13) 07/17/20 18:04 D-Dimer 620.88 ng/mlDDU (0-234) H 07/17/20 23:39 VBG pH 7.371 (7.320-7.420) 07/17/20 18:04 Sodium 136 mmol/L (137-145) L 07/17/20 18:04 Potassium 3.7 mmol/L (3.6-5.0) 07/17/20 18:04 Chloride 100.0 mmol/L (98-107) 07/17/20 18:04 Carbon Dioxide 24 mmol/L (22-30) 07/17/20 18:04 Anion Gap 16 mmol/L 07/17/20 18:04 BUN 3 mg/dL (7-17) L 07/17/20 18:04 Creatinine 0.4 mg/dL (0.6-1.2) L 07/17/20 18:04 Estimated GFR > 60 ml/min 07/17/20 18:04 BUN/Creatinine Ratio 8 % 07/17/20 18:04 Glucose 168 mg/dL (65-100) H 07/17/20 23:39 Lactic Acid 1.30 mmol/L (0.7-2.0) 07/18/20 02:59 Calcium 8.7 mg/dL (8.4-10.2) 07/17/20 18:04 Ferritin 126.2 ng/mL (10.0-200.0) 07/17/20 23:39 Total Bilirubin 0.40 mg/dL (0.1-1.2) 07/17/20 18:04 AST 29 units/L (5-40) 07/17/20 18:04 ALT 19 units/L (7-56) 07/17/20 18:04 Alkaline Phosphatase 94 units/L (35-129) 07/17/20 18:04 Lactate Dehydrogenase 375 units/L (91-180) H 07/17/20 23:39 C-Reactive Protein 7.10 mg/dL (0.00-1.30) H 07/17/20 23:39 Total Protein 5.8 g/dL (6.3-8.2) L 07/17/20 18:04 Albumin 3.2 g/dL (3.9-5) L 07/17/20 18:04 Albumin/Globulin Ratio 1.2 % 07/17/20 18:04 Procalcitonin < 0.05 ng/mL (<0.15) 07/17/20 23:39 Urine Color Maria G (Yellow) 07/17/20 Unknown Urine Turbidity Slightly-cloudy (Clear) 07/17/20 Unknown Urine pH 6.0 (5.0-7.0) 07/17/20 Unknown Ur Specific [place] 1.018 (1.003-1.030) 07/17/20 Unknown Urine Protein 30 mg/dl mg/dL (Negative) 07/17/20 Unknown Urine Glucose (UA) Neg mg/dL (Negative) 07/17/20 Unknown Urine Ketones 20 mg/dL (Negative) 07/17/20 Unknown Urine Blood Neg (Negative) 07/17/20 Unknown Urine Nitrite Neg (Negative) 07/17/20 Unknown Urine Bilirubin Neg (Negative) 07/17/20 Unknown Urine Urobilinogen 4.0 mg/dL (<2.0) 07/17/20 Unknown Ur Leukocyte Esterase Neg (Negative) 07/17/20 Unknown Urine WBC (Auto) 6.0 /HPF (0.0-6.0) 07/17/20 Unknown Urine RBC (Auto) 4.0 /HPF (0.0-6.0) 07/17/20 Unknown U Epithel Cells (Auto) 17.0 /HPF (0-13.0) H 07/17/20 Unknown Urine Bacteria (Auto) 4+ /HPF (Negative) 07/17/20 Unknown Urine Mucus Few /HPF 07/17/20 Unknown Nasal Screen MRSA (PCR) Negative (Negative) 07/18/20 08:28 Coronavirus (PCR) Positive (Negative) A 07/18/20 10:15 Microbiology: Microbiology 07/17/20 21:03 Peripheral/Venous Blood Culture - Preliminary NO GROWTH AFTER 24 HOURS 07/17/20 21:03 Peripheral/Venous Blood Culture - Preliminary NO GROWTH AFTER 24 HOURS [place]/IV: Voiding Method Toilet IV Catheter Type [Left Peripheral IV Antecubital] Active Medications - Current Medications Current Medications: Generic Name Dose Route Start Last Admin Trade Name Freq PRN Reason Stop Dose Admin Acetaminophen 650 mg 07/18/20 03:59 07/19/20 05:02 Tylenol PO 650 mg Q4H PRN Administration Pain MILD(1-3)/Fever >100.5/MATA Al Hydrox/Mg Hydrox/Simethicone 30 ml 07/18/20 03:59 07/18/20 10:39 Alum-Mag Hydrox-Simeth [id number]/5ml PO 30 ml Q4H PRN Administration Indigestion Ascorbic Acid 1,000 mg 07/18/20 22:00 07/19/20 11:00 Vitamin C PO 1,000 mg BID MICHAEL Administration Azithromycin 500 mg 07/19/20 22:00 Zithromax PO Q24H MICHAEL Cholecalciferol 5,000 unit 07/18/20 16:00 07/19/20 11:05 Vitamin D3 PO Not Given DAILY MICHAEL Dexamethasone 6 mg 07/18/20 16:00 07/19/20 11:00 Decadron PO 07/27/20 10:01 6 mg DAILY MICHAEL Administration Docusate Sodium 100 mg 07/18/20 10:00 07/19/20 11:00 Colace PO 100 mg BID MICHAEL Administration Fluticasone Propionate 50 mcg 07/18/20 15:45 Flonase NS QDAY PRN Allergy Symptoms Heparin Sodium (Porcine) 5,000 unit 07/18/20 06:00 07/19/20 04:59 Heparin SUB-Q 5,000 unit Q8HR MICHAEL Administration Sodium Chloride 1,000 mls @ 125 mls/hr 07/18/20 03:59 07/19/20 05:00 Nacl 0.9% 1000 Ml IV 125 mls/hr DIRECT MICHAEL Administration Magnesium Hydroxide 30 ml 07/18/20 03:59 Milk Of Magnesia PO Q4H PRN Constipation Ondansetron HCl 4 mg 07/18/20 22:16 07/18/20 22:27 Zofran IV 4 mg Q8H PRN Administration Nausea And Vomiting Sodium Chloride 10 ml 07/18/20 10:00 07/19/20 11:06 Sodium Chloride Flush Syringe 10 Ml IV 10 ml BID MICHAEL Administration Sodium Chloride 10 ml 07/18/20 03:59 Sodium Chloride Flush Syringe 10 Ml IV PRN PRN LINE FLUSH Zinc Sulfate 220 mg 07/18/20 22:00 07/19/20 11:00 Zinc Sulfate PO 220 mg BID MICHAEL Administration
[2020-07-19] MEDS: ALUM-MAG HYDROXIDE-SIMETHICONE 200-200-20MG/5ML ORAL LIQD 30 ML PO PRN (12:00)
--- NOTE | 2020-07-19 12:22 | Consultation ---
History of Present Illness - Reason for Consult Consult date: 07/19/20 Reason for consult: MHE Requesting physician: NICK GUERRERO - Chief Complaint Chief complaint: I've been having chest pain for the past few days. - History of Present Psychiatric Illness PSYCH HPI Patient is a 29 year old , single with children, live with self and unemployed with no prior psychiatric history and has past medicla history of sleep apnea. Patient reports loosing her mom last year and her son a year before, and has not had any help from those incidents, and since been admitted to the hospital she has not been able to care for her own kids. Patient is also 27 weeks , says she sometimes thinks about Suicida, not active but passive. Patient endorses poor sleep, endorse anhedonia and decreased interest in activities, and denies guilty feeling. She reports her moms and sons has been a huge impact on her depression. PAST PSYCHIATRIC HISTORY Diagnoses: none Suicide attempts or Self-harm behavior: none Prior psychiatric hospitalizations: none Substance Abuse history: Previous psychiatric medications tried: none Outpatient treatment: none PAST MEDICAL HISTORY: Family Psychiatric History: None reported or documented SOCIAL HISTORY Marital Status: single Living Arrangements: with self Employment Status: unemployed Access to guns/weapons: yes Education: High school History of Abuse: none Legal History: REVIEW OF SYSTEMS Constitutional: Negative for weight loss ENT: Negative for stridor Respiratory: Negative for cough or hemoptysis All other systems reviewed and are negative MENTAL STATUS EXAMINATION General Appearance and Behavior: conducted over phone Cooperation: Participating/engaged, Psychomotor Behavior: unremarkable and within normal limits Mood: Depressed, Affect and affective range: depressed Thought Content: Hopelessness, Helplessness, Phobia Speech: Normal volume, Regular rate and rhythm Intellectual Functioning: Average Suicidal Ideation: Passive Homicidal Ideation: Denies HI Impulse Control: Unimpaired Insight and Judgment: Normal insight and judgment Memory: Normal Attention: Normal Orientation: Alert, oriented Assessment and Plan - Psychiatric problem (1) Dysfunctional grieving Current Visit: Yes Status: Acute Treatment Plan Patient is at 27 weeks of gestation, limited pharmacological intervention at this time and also covid positive. MEDICATIONS: Risks, benefits and alternatives of medications discussed with the patient, questions answered and consent obtained from patient. PSYCHOTHERAPY: Supportive psychotherapy provided MEDICAL: Per primary team DELIRIUM PRECAUTIONS: Please re-orient patient frequently, keep lights on during the day, and minimize benzodiazepines and opiates as these medications could worsen patient's confusion. 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 LEGAL STATUS: Voluntary FOLLOW-UP: Will follow for psychotherapy and monitory due to severre grief Thank you for the consult. Please contact with any questions and/or concerns. Medications and Allergies Allergies Allergy/AdvReac Type Severity Reaction Status Date / Time No Known Allergies Allergy Verified 06/10/20 17:12 Home Medications Medication Instructions Recorded Confirmed Last Taken Type predniSONE [Deltasone] 20 mg PO QDAY #4 tablet 07/20/18 07/18/20 Unknown Rx Loratadine [Claritin] 10 mg PO DAILY #10 tablet 07/11/20 07/18/20 Unknown Rx Fluticasone [Flonase] 1 spray NS QDAY PRN 07/18/20 07/18/20 Unknown History Active Meds: Active Medications Acetaminophen (Tylenol) 650 mg PO Q4H PRN PRN Reason: Pain MILD(1-3)/Fever >100.5/MATA Last Admin: 07/19/20 05:02 Dose: 650 mg Documented by: Al Hydrox/Mg Hydrox/Simethicone (Alum-Mag Hydrox-Simeth [id number]/5ml) 30 ml PO Q4H PRN PRN Reason: Indigestion Last Admin: 07/19/20 12:00 Dose: 30 ml Documented by: Ascorbic Acid (Vitamin C) 1,000 mg PO BID [facility] Last Admin: 07/19/20 11:00 Dose: 1,000 mg Documented by: Azithromycin (Zithromax) 500 mg PO Q24H [facility] Cholecalciferol (Vitamin D3) 5,000 unit PO DAILY [facility] Last Admin: 07/19/20 11:05 Dose: Not Given Documented by: Dexamethasone (Decadron) 6 mg PO DAILY [facility] Stop: 07/27/20 10:01 Last Admin: 07/19/20 11:00 Dose: 6 mg Documented by: Docusate Sodium (Colace) 100 mg PO BID [facility] Last Admin: 07/19/20 11:00 Dose: 100 mg Documented by: Fluticasone Propionate (Flonase) 50 mcg NS QDAY PRN PRN Reason: Allergy Symptoms Heparin Sodium (Porcine) (Heparin) 5,000 unit SUB-Q Q8HR [facility] Last Admin: 07/19/20 04:59 Dose: 5,000 unit Documented by: Sodium Chloride (Nacl 0.9% 1000 Ml) 1,000 mls @ 125 mls/hr IV DIRECT [facility] Last Admin: 07/19/20 05:00 Dose: 125 mls/hr Documented by: Magnesium Hydroxide (Milk Of Magnesia) 30 ml PO Q4H PRN PRN Reason: Constipation Ondansetron HCl (Zofran) 4 mg IV Q8H PRN PRN Reason: Nausea And Vomiting Last Admin: 07/18/20 22:27 Dose: 4 mg Documented by: Sodium Chloride (Sodium Chloride Flush Syringe 10 Ml) 10 ml IV BID [facility] Last Admin: 07/19/20 11:06 Dose: 10 ml Documented by: Sodium Chloride (Sodium Chloride Flush Syringe 10 Ml) 10 ml IV PRN PRN PRN Reason: LINE FLUSH Zinc Sulfate (Zinc Sulfate) 220 mg PO BID [facility] Last Admin: 07/19/20 11:00 Dose: 220 mg Documented by: Mental Status Exam - Vital signs Last Vital Signs Temp 98.7 F 07/19/20 05:55 Pulse 114 H 07/19/20 05:55 Resp 20 07/19/20 05:55 BP 146/82 07/19/20 05:55 Pulse Ox 94 07/19/20 07:30 Results Result Diagrams: 07/17/20 18:04 07/17/20 23:39 Abnormal lab results 07/18/20 Range/Units 10:15 Coronavirus (PCR) Positive A (Negative) All other labs normal. Assessment and Plan - Psychiatric problem (1) Dysfunctional grieving Current Visit: Yes Status: Acute
--- NOTE | 2020-07-19 13:46 | Progress Note ---
Assessment and Plan Cultures: Coronavirus PCR: Positive Blood culture: no growth Urine culture: normal skin quinten, A/P: 29-year-old female who is about 30 weeks admitted with chest pain and shortness of breath of 1 week duration: #Bilateral pneumonia: COVID-19 PCR is positive. #: ~ 30 weeks. 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 #Morbid obesity: associated with adverse outcomes in COVID-19. Recs: -Discussed with patient about Remdesivir and limited literature in terms of adverse effects on the fetus. Limited medical literature does not report any adverse outcomes, especially in the 3rd trimester. Patient agrees to Remdesivir, order placed -continue IV/PO Dexamethasone 6 mg daily, D2 of 10 -prophylactic anticoagulation based on d-dimer -trend ferritin, LDH, d-dimer, CRP every 2-3 days for risk stratification and to assess disease progression -Procalcitonin is low, will discontinue antibiotics Man Hercules MD, FACP [facility] C: [phone] O: [phone] F: [phone] Subjective Date of service: 07/19/20 Principal diagnosis: IUP 305d; morbid obesity; poss pneumonia Interval history: Feeling a little better. No fever. COVID positive. On and off oxygen. Objective - Exam Narrative Exam: Physical Exam (reviewed in chart due to PPE conservation and minimize risk of transmission) Constitutional: limited due to PPE conservation strategy Head, Ears, Nose: limited due to PPE conservation strategy Eyes: limited due to PPE conservation strategy Neck: limited due to PPE conservation strategy Oral: limited due to PPE conservation strategy Cardiovascular: limited due to PPE conservation strategy Respiratory: limited due to PPE conservation strategy GI: limited due to PPE conservation strategy Musculoskeletal: limited due to PPE conservation strategy Skin: limited due to PPE conservation strategy Hem/Lymphatic: limited due to PPE conservation strategy Psych: limited due to PPE conservation strategy Neurological: limited due to PPE conservation strategy - Constitutional Vitals: Vital Signs Temp Pulse Resp BP Pulse Ox 98.7 F 114 H 20 146/82 94 07/19/20 05:55 07/19/20 05:55 07/19/20 05:55 07/19/20 05:55 07/19/20 07:30 Temperature -Last 24 Hours Temperature 98.7 F Temperature 97.6 F Temperature 98.1 F - Labs CBC & Chem 7: 07/17/20 18:04 07/17/20 23:39 Labs: Abnormal lab results 07/18/20 Range/Units 10:15 Coronavirus (PCR) Positive A (Negative)
[2020-07-19] MEDS ORDERED: SODIUM CHLORIDE 0.9% 50 ML IVPB IV SCH (14:00)
[2020-07-19] MEDS ORDERED: REMDESIVIR 200 MG in SODIUM CHLORIDE 0.9% 250ML 250 ML IV ONE (15:00)
[2020-07-19] MEDS ORDERED: REMDESIVIR 100 MG VIAL IV ONE (15:56)
[2020-07-19] MEDS ORDERED: AZITHROMYCIN 250 MG TAB PO SCH (22:00)
[2020-07-19] MEDS ORDERED: MELATONIN 5 MG TAB PO SCH (22:00)
[2020-07-20] MEDS: ONDANSETRON 4 MG/2 ML INJ IV PRN (02:34)
[2020-07-20] MEDS: ACETAMINOPHEN 325 MG TAB PO PRN (05:50)
[2020-07-20] MEDS: HEPARIN 5,000 UNIT/1 ML VIAL SUB-Q SCH (06:45)
--- NOTE | 2020-07-20 07:25 | Progress Note ---
Assessment and Plan Pt appears to be less labored this AM than my previous visit 2 days ago. She reports good movement. Denies any LOF,VB. Pt has been seen by , note appreciated. Pt voicing increased crying but she did speak with her children and states she is better. Will continue Qshift NST. Encouraged pt to let nursing staff know of any contractions, LOF or vaginal bleeding. Dr Gannon consulted. - Patient Problems (1) Bilateral pneumonia Onset Date: ~07/17/20 Current Visit: Yes Status: Acute Qualifiers: Pneumonia type: due to unspecified organism Lung location: unspecified part of lung Qualified Code(s): J18.9 - Pneumonia, unspecified organism (2) with 30 completed weeks gestation Onset Date: ~07/14/20 Current Visit: Yes Status: Acute (3) COVID-19 virus infection Onset Date: ~07/18/20 Current Visit: Yes Status: Acute Subjective - Subjective Date of service: 07/20/20 (pt voiced she has been crying a lot; but she is better since speaking with her kids) Principal diagnosis: IUP 30w6d; morbid obesity; COVID+; pneumonia; depression/anxiety Patient reports: movement normal, other (Pt states she is SOB when she is ambulating) Objective - Vital Signs Vital Signs: Vital Signs - 12hr 07/19/20 07/19/20 07/20/20 20:56 21:40 05:33 Temperature 97.8 F Pulse Rate 109 H 109 H Respiratory 20 20 Rate Blood Pressure 119/70 117/73 O2 Sat by Pulse 95 94 98 Oximetry - Exam Breasts: deferred Cardiovascular: Regular rate Lungs: Other (crackles bilateral; clear some with cough) Abdomen: Present: normal appearance, soft. Absent: distention, tenderness Uterus: Present: normal FHR: auscultation normal (NST started while seeing pt) Uterine Contraction Pattern: Absent Extremities: edema Deep Tendon Reflex Grade: Normal +2 - Labs Labs: Abnormal Labs 07/17/20 07/17/20 07/17/20 18:04 18:04 18:04 Lymph # (Auto) 0.9 L Seg Neutrophils % 80.3 H D-Dimer Sodium 136 L BUN 3 L Creatinine 0.4 L Glucose 121 H Lactic Acid 2.10 H* Lactate Dehydrogenase C-Reactive Protein Total Protein 5.8 L Albumin 3.2 L U Epithel Cells (Auto) Coronavirus (PCR) 07/17/20 07/17/20 07/17/20 23:39 23:39 Unknown Lymph # (Auto) Seg Neutrophils % D-Dimer 620.88 H Sodium BUN Creatinine Glucose 168 H Lactic Acid Lactate Dehydrogenase 375 H C-Reactive Protein 7.10 H Total Protein Albumin U Epithel Cells (Auto) 17.0 H Coronavirus (PCR) 07/18/20 10:15 Lymph # (Auto) Seg Neutrophils % D-Dimer Sodium BUN Creatinine Glucose Lactic Acid Lactate Dehydrogenase C-Reactive Protein Total Protein Albumin U Epithel Cells (Auto) Coronavirus (PCR) Positive A Laboratory Results - last 24 hr 07/19/20 07/19/20 07/19/20 12:05 12:05 12:05 Troponin T < 0.010 TSH 2.540 Free T4 0.88
--- NOTE | 2020-07-20 08:31 | Progress Note ---
Assessment and Plan Assessment and plan: 29 year old female with history of CARMEN and 8 months presentswith shortness of breath and chest pain. Shortness of breath was said to have started about a week ago however she started having some chest discomfort within the last 24 hours. She denies any fever or chills, no nausea vomiting, no headache or dizziness. Patient denies any sick contacts and no recent travel. She denies contact with anyone with COVID-19. Work-up in the emergency room today chest x-ray shows bilateral pneumonia. CT angiogram of the chest shows:. No CT evidence for pulmonary embolism given slight limitations. Diffuse patchy airspace disease throughout the lungs, more confluent within the periphery of the upper lobes. Multifocal pneumonia is favored. An atypical viral infection such as Covid cannot be excluded. Patient was started on empiric IV antibiotics and placed on isolation precautions. Patient has been discussed with the [facility] team by the ER physician. - Patient Problems (1) COVID-19 virus infection Current Visit: Yes Status: Acute (2) Bilateral pneumonia Onset Date: ~07/17/20 Current Visit: Yes Status: Acute Qualifiers: Pneumonia type: due to unspecified organism Lung location: unspecified part of lung Qualified Code(s): J18.9 - Pneumonia, unspecified organism (3) Chest pain- Atypical -costochondirtis Current Visit: Yes Status: Acute (4) Current Visit: Yes Status: Acute (5) Sleep apnea Current Visit: Yes Status: Chronic (6) Anxiety vs Grief (7) morbid obesity (8)Mobitz type 1 second degree AV block Current Visit: Yes Status: Acute 07/19: Patient seen and examined, clinically stable, overnight Pauses being evaluated by ID. Continue steroids, wean per protocol, Monitor anti-inflammatory markers. BIPAP/CPAP AT NIGHT and during hours of sleep. Weight loss following delivery of her baby. Anticipate discharge tomorrow if continues to improve 07/20: Patient doing well clinically, started on Remdesivir after risk factors wa s reviewed, educated again on need to use BIPAP at night, we have also discussed extensively management on discharge, will continue steroids and 2nd dose of Remdesivir today. Room air exertion Oxygen level check today. Will also check inflammatory markers. Anticipate discharge in a.m. after at least third dose of Remdesivir. History Interval history: Patient seen and examined resting comfortably reports improvement no further chest pain noted. No further cardiac arrhythmia Hospitalist Physical - Physical exam Narrative exam: VITAL SIGNS: Reviewed. GENERAL: The patient appears normally developed, morbidly obese vital signs as documented. HEAD: No signs of head trauma. EYES: Pupils are equal. Extraocular motions intact. EARS: Hearing grossly intact. MOUTH: Oropharynx is normal. NECK: No adenopathy, no JVD. CHEST: Chest with clear breath sounds bilaterally. No wheezes, rales, or rhonchi. CARDIAC: Regular rate and rhythm. S1 and S2, without murmurs, gallops, or rubs. VASCULAR: No Edema. Peripheral pulses normal and equal in all extremities. ABDOMEN: Soft, gravidus, non tender and non distended. No rebound or guarding, and no masses palpated. Bowel Sounds normal. MUSCULOSKELETAL: Good range of motion of all major joints. Extremities without clubbing, cyanosis or edema. NEUROLOGIC EXAM: Alert and oriented x 3 No focal sensory or strength deficits. Speech normal. Follows commands. PSYCHIATRIC: Mood normal. SKIN: detail exam as documented in skin assessment - Constitutional Vitals: Temp Pulse Resp BP Pulse Ox 97.8 F 109 H 20 117/73 98 07/19/20 21:40 07/20/20 05:33 07/20/20 05:33 07/20/20 05:33 07/20/20 05:33 General appearance: Present: no acute distress HEART Score - HEART Score Troponin: Troponin T < 0.010 ng/mL (0.00-0.029) 07/20/20 06:26 Results - Labs CBC & Chem 7: 07/17/20 18:04 07/17/20 23:39 Labs: Laboratory Last Values WBC 5.9 K/mm3 (4.5-11.0) 07/17/20 18:04 RBC 3.67 M/mm3 (3.65-5.03) 07/17/20 18:04 Hgb 11.4 gm/dl (10.1-14.3) 07/17/20 18:04 Hct 34.5 % (30.3-42.9) 07/17/20 18:04 MCV 94 fl (79-97) 07/17/20 18:04 MCH 31 pg (28-32) 07/17/20 18:04 MCHC 33 % (30-34) 07/17/20 18:04 RDW 14.5 % (13.2-15.2) 07/17/20 18:04 Plt Count 250 K/mm3 (140-440) 07/17/20 18:04 Lymph % (Auto) 14.4 % (13.4-35.0) 07/17/20 18:04 [place] % (Auto) 4.9 % (0.0-7.3) 07/17/20 18:04 Eos % (Auto) 0.1 % (0.0-4.3) 07/17/20 18:04 Baso % (Auto) 0.3 % (0.0-1.8) 07/17/20 18:04 Lymph # (Auto) 0.9 K/mm3 (1.2-5.4) L 07/17/20 18:04 [place] # (Auto) 0.3 K/mm3 (0.0-0.8) 07/17/20 18:04 Eos # (Auto) 0.0 K/mm3 (0.0-0.4) 07/17/20 18:04 Baso # (Auto) 0.0 K/mm3 (0.0-0.1) 07/17/20 18:04 Seg Neutrophils % 80.3 % (40.0-70.0) H 07/17/20 18:04 Seg Neutrophils # 4.8 K/mm3 (1.8-7.7) 07/17/20 18:04 PT 13.1 Sec. (12.2-14.9) 07/17/20 18:04 INR 0.98 (0.87-1.13) 07/17/20 18:04 D-Dimer 620.88 ng/mlDDU (0-234) H 07/17/20 23:39 VBG pH 7.371 (7.320-7.420) 07/17/20 18:04 Sodium 136 mmol/L (137-145) L 07/17/20 18:04 Potassium 3.7 mmol/L (3.6-5.0) 07/17/20 18:04 Chloride 100.0 mmol/L (98-107) 07/17/20 18:04 Carbon Dioxide 24 mmol/L (22-30) 07/17/20 18:04 Anion Gap 16 mmol/L 07/17/20 18:04 BUN 3 mg/dL (7-17) L 07/17/20 18:04 Creatinine 0.4 mg/dL (0.6-1.2) L 07/17/20 18:04 Estimated GFR > 60 ml/min 07/17/20 18:04 BUN/Creatinine Ratio 8 % 07/17/20 18:04 Glucose 168 mg/dL (65-100) H 07/17/20 23:39 Lactic Acid 1.30 mmol/L (0.7-2.0) 07/18/20 02:59 Calcium 8.7 mg/dL (8.4-10.2) 07/17/20 18:04 Ferritin 126.2 ng/mL (10.0-200.0) 07/17/20 23:39 Total Bilirubin 0.40 mg/dL (0.1-1.2) 07/17/20 18:04 AST 29 units/L (5-40) 07/17/20 18:04 ALT 19 units/L (7-56) 07/17/20 18:04 Alkaline Phosphatase 94 units/L (35-129) 07/17/20 18:04 Lactate Dehydrogenase 375 units/L (91-180) H 07/17/20 23:39 Troponin T < 0.010 ng/mL (0.00-0.029) 07/20/20 06:26 C-Reactive Protein 7.10 mg/dL (0.00-1.30) H 07/17/20 23:39 Total Protein 5.8 g/dL (6.3-8.2) L 07/17/20 18:04 Albumin 3.2 g/dL (3.9-5) L 07/17/20 18:04 Albumin/Globulin Ratio 1.2 % 07/17/20 18:04 Procalcitonin < 0.05 ng/mL (<0.15) 07/17/20 23:39 TSH 2.540 mlU/mL (0.270-4.200) 07/19/20 12:05 Free T4 0.88 ng/dL (0.76-1.46) 07/19/20 12:05 Urine Color Maria G (Yellow) 07/17/20 Unknown Urine Turbidity Slightly-cloudy (Clear) 07/17/20 Unknown Urine pH 6.0 (5.0-7.0) 07/17/20 Unknown Ur Specific Talent 1.018 (1.003-1.030) 07/17/20 Unknown Urine Protein 30 mg/dl mg/dL (Negative) 07/17/20 Unknown Urine Glucose (UA) Neg mg/dL (Negative) 07/17/20 Unknown Urine Ketones 20 mg/dL (Negative) 07/17/20 Unknown Urine Blood Neg (Negative) 07/17/20 Unknown Urine Nitrite Neg (Negative) 07/17/20 Unknown Urine Bilirubin Neg (Negative) 07/17/20 Unknown Urine Urobilinogen 4.0 mg/dL (<2.0) 07/17/20 Unknown Ur Leukocyte Esterase Neg (Negative) 07/17/20 Unknown Urine WBC (Auto) 6.0 /HPF (0.0-6.0) 07/17/20 Unknown Urine RBC (Auto) 4.0 /HPF (0.0-6.0) 07/17/20 Unknown U Epithel Cells (Auto) 17.0 /HPF (0-13.0) H 07/17/20 Unknown Urine Bacteria (Auto) 4+ /HPF (Negative) 07/17/20 Unknown Urine Mucus Few /HPF 07/17/20 Unknown Nasal Screen MRSA (PCR) Negative (Negative) 07/18/20 08:28 Coronavirus (PCR) Positive (Negative) A 07/18/20 10:15 Microbiology: Microbiology 07/17/20 21:03 Peripheral/Venous Blood Culture - Preliminary NO GROWTH AFTER 48 HOURS 07/17/20 21:03 Peripheral/Venous Blood Culture - Preliminary NO GROWTH AFTER 48 HOURS 07/17/20 Unknown Urine,Clean Catch Urine Culture - Preliminary [place]/IV: Voiding Method Toilet IV Catheter Type [Left Forearm INT / Saline Lock ] IV Catheter Type [Left Peripheral IV Antecubital] Active Medications - Current Medications Current Medications: Generic Name Dose Route Start Last Admin Trade Name Freq PRN Reason Stop Dose Admin Acetaminophen 650 mg 07/18/20 03:59 07/20/20 05:50 Tylenol PO 650 mg Q4H PRN Administration Pain MILD(1-3)/Fever >100.5/MATA Al Hydrox/Mg Hydrox/Simethicone 30 ml 07/18/20 03:59 07/19/20 12:00 Alum-Mag Hydrox-Simeth [id number]/5ml PO 30 ml Q4H PRN Administration Indigestion Ascorbic Acid 1,000 mg 07/18/20 22:00 07/19/20 21:33 Vitamin C PO 1,000 mg BID MICHAEL Administration Cholecalciferol 5,000 unit 07/18/20 16:00 07/19/20 11:05 Vitamin D3 PO Not Given DAILY MICHAEL Dexamethasone 6 mg 07/18/20 16:00 07/19/20 11:00 Decadron PO 07/27/20 10:01 6 mg DAILY MICHAEL Administration Docusate Sodium 100 mg 07/18/20 10:00 07/19/20 21:33 Colace PO 100 mg BID MICHAEL Administration Fluticasone Propionate 50 mcg 07/18/20 15:45 Flonase NS QDAY PRN Allergy Symptoms Heparin Sodium (Porcine) 5,000 unit 07/18/20 06:00 07/20/20 06:45 Heparin SUB-Q 5,000 unit Q8HR MICHAEL Administration Sodium Chloride 1,000 mls @ 125 mls/hr 07/18/20 03:59 07/19/20 21:33 Nacl 0.9% 1000 Ml IV 125 mls/hr DIRECT MICHAEL Administration REMDESIVIR 100 mg/ Sodium 250 mls @ 500 mls/hr 07/20/20 21:00 Chloride IV 07/23/20 21:29 Q24HR@2100 MICHAEL Magnesium Hydroxide 30 ml 07/18/20 03:59 Milk Of Magnesia PO Q4H PRN Constipation Melatonin 10 mg 07/19/20 22:00 07/19/20 21:32 Melatonin PO 10 mg QHS MICHAEL Administration Ondansetron HCl 4 mg 07/18/20 22:16 07/20/20 02:34 Zofran IV 4 mg Q8H PRN Administration Nausea And Vomiting Sodium Chloride 10 ml 07/18/20 10:00 07/19/20 21:34 Sodium Chloride Flush Syringe 10 Ml IV 10 ml BID MICHAEL Administration Sodium Chloride 10 ml 07/18/20 03:59 Sodium Chloride Flush Syringe 10 Ml IV PRN PRN LINE FLUSH Sodium Chloride 50 ml 07/19/20 14:00 Nacl 0.9% IV 07/23/20 21:01 2100 MICHAEL Zinc Sulfate 220 mg 07/18/20 22:00 07/19/20 21:33 Zinc Sulfate PO 220 mg BID MICHAEL Administration
[2020-07-20 10:16] LABS: C-Reactive Protein 2.6 mg/dL (0.00-1.30)
[2020-07-20] MEDS: DOCUSATE SODIUM 100 MG CAP PO SCH (10:47)
[2020-07-20] MEDS: ASCORBIC ACID 500 MG TAB PO SCH (10:48)
[2020-07-20] MEDS: ZINC SULFATE 220 MG CAP PO SCH (10:48)
[2020-07-20] MEDS: DEXAMETHASONE 4 MG TAB PO SCH (10:48)
[2020-07-20] MEDS: CHOLECALCIFEROL (VIT D3) 5,000 UNIT TAB PO SCH (10:48)
--- NOTE | 2020-07-20 11:23 | Progress Note ---
Assessment and Plan No issues overnight needs cpap at night for likely farhan stable cv status now - Patient Problems (1) COVID-19 virus infection Onset Date: ~07/18/20 Current Visit: Yes Status: Acute (2) with 30 completed weeks gestation Onset Date: ~07/14/20 Current Visit: Yes Status: Acute (3) Previous section Current Visit: Yes Status: Acute (4) Sleep apnea Current Visit: Yes Status: Chronic Subjective Date of service: 07/20/20 Principal diagnosis: IUP 30w6d; morbid obesity; COVID+; pneumonia; depression/anxiety Objective Vital Signs Temp Pulse Resp BP Pulse Ox 07/20/20 08:45 95 07/20/20 05:33 109 H 20 117/73 98 07/19/20 21:40 97.8 F 109 H 20 119/70 94 07/19/20 20:56 95 07/19/20 17:21 99.0 F 116 H 22 123/73 98 07/19/20 12:52 98.9 F 119 H 20 124/82 95 - Physical Examination HEENT: Positive: PERRL, Normocephaly, Mucus Membranes Moist Neck: Positive: neck supple, trachea midline Neuro: Positive: Grossly Intact Abdomen: Positive: Other () Skin: Negative: Rash Musculoskeletal: No Pain Extremities: Absent: edema - Labs and Meds Cardiac Enzymes 07/20/20 Range/Units 08:59 Lactate Dehydrogenase 270 H (91-180) units/L - Imaging and Cardiology EKG: report reviewed, image reviewed - EKG Sinus rhythms and dysrhythmias: sinus rhythm, sinus tachycardia
--- NOTE | 2020-07-20 12:28 | Progress Note ---
Subjective - Reason for Consult Consult date: 07/20/20 Reason for consult: MHE Requesting physician: NICK GUERRERO - Chief Complaint Chief complaint: Psych Progress Patient seen today, reports feeling much better than previous, endorses receiving communication from family members, patient advised on outpt F/U for counselling due to limited pharmacologic intervention with her . Patient agrees to understanding and will review discharge information as mentioned. REVIEW OF SYSTEMS Constitutional: Negative for weight loss ENT: Negative for stridor Respiratory: Negative for cough or hemoptysis All other systems reviewed and are negative MENTAL STATUS EXAMINATION General Appearance and Behavior: conducted over phone Cooperation: Participating/engaged, Psychomotor Behavior: unremarkable and within normal limits Mood: "much better" Affect and affective range: congruent with mood Thought Content: within reality Speech: Normal volume, Regular rate and rhythm Intellectual Functioning: Average Suicidal Ideation: Denies Homicidal Ideation: Denies HI Impulse Control: Unimpaired Insight and Judgment: Normal insight and judgment Memory: Normal Attention: Normal Orientation: Alert, oriented Assessment and Plan - Psychiatric problem (1) Dysfunctional grieving Current Visit: Yes Status: Acute Treatment Plan Patient is at 27 weeks of gestation, limited pharmacological intervention at this time and also covid positive. MEDICATIONS: Risks, benefits and alternatives of medications discussed with the patient, questions answered and consent obtained from patient. PSYCHOTHERAPY: Supportive psychotherapy provided MEDICAL: Per primary team DELIRIUM PRECAUTIONS: Please re-orient patient frequently, keep lights on during the day, and minimize benzodiazepines and opiates as these medications could worsen patient's confusion. PRACTICE PERFORMANCE MANAGER: DISPOSITION: No acute inpatient psychiatric hospitalization at this time. Outpt follow up resources to be provided LEGAL STATUS: Voluntary FOLLOW-UP: Will sing off Thank you for the consult. Please contact with any questions and/or concerns Mental Status Exam - Vital signs Last Vital Signs Temp 97.8 F 07/19/20 21:40 Pulse 109 H 07/20/20 05:33 Resp 20 07/20/20 05:33 BP 117/73 07/20/20 05:33 Pulse Ox 95 07/20/20 08:45 Assessment and Plan - Patient Problems (1) Dysfunctional grieving Status: Acute
[2020-07-20 12:40] VITALS: BP 123/80
--- NOTE | 2020-07-20 15:28 | Event Note ---
Date: 07/20/20 Chanelle Allen received a call from Harish RN stating patient wants to leave AMA. I s/e Harish who states patient has already singed AMA paperwork. Instrd to call and inform the hospitalist
[2020-07-20] MEDS ORDERED: REMDESIVIR 100 MG in SODIUM CHLORIDE 0.9% 250ML 250 ML IV SCH (21:00)
--- NOTE | 2020-07-22 07:29 | Event Note ---
Date: 07/22/20 Was notifed that the patient Left AMA. I have tried to call the patient with no success. Nurse reports that they explained the associated risk and had asked the patient to wait for a physician and she declined.
== END 2020-07-20 16:00 | disposition left against medical advice (07) | DRG 781 ==
LOC: ED 17:41 → 3A 07-18 02:13
PROVIDERS: ADMIT Obstetrics & Gynecology; ATTEND Obstetrics & Gynecology
PROC: XW033E5 Introduction of Remdesivir Anti-infective into Peripheral Vein, Percutaneous Approach, New Technology Group 5 (ICD-10-PCS; principal; 2020-07-19)
DX: O98.513 Other viral diseases complicating pregnancy, third trimester (principal); U07.1 COVID-19; J12.89 Other viral pneumonia; E66.01 Morbid (severe) obesity due to excess calories; O99.513 Diseases of the respiratory system complicating pregnancy, third trimester; G47.33 Obstructive sleep apnea (adult) (pediatric); M94.0 Chondrocostal junction syndrome [Tietze]; O99.413 Diseases of the circulatory system complicating pregnancy, third trimester; O26.893 Other specified pregnancy related conditions, third trimester; I44.1 Atrioventricular block, second degree; O99.213 Obesity complicating pregnancy, third trimester; Z3A.30 30 weeks gestation of pregnancy; Z71.3 Dietary counseling and surveillance; Z79.899 Other long term (current) drug therapy
CPT/HCPCS: 36415; 71045; 71275; 80053; 81001; 82140; 82728; 82805; 82947; 83615; 84145; 84439; 84443; 84484; 85025; 85379; 85610; 86140; 87040; 87086; 87641; 93005; 93970; 96365; 96366; G0378; J0456; J0692; J0696; J1644; J2405; J7030; J7040; J7050; J8540; Q9967; U0003-CS